=== PATIENT | female | born 1940 | race Caucasian/White ===

== ENCOUNTER 2016-10-12 13:03 | Inpatient (IN) | payer MEDICARE, BC ==
[~2016-10-12] VITALS: Ht 157.5 cm; Wt 47.2 kg
[~2016-10-12 13:03] MED LIST: ALEN70TA5 PO; AMLO5TAB2 PO; AMOX1TAB10 PO; AMOX1TAB61 PO; ASPI325T4 PO; ASPI81TA2 PO; CHOL500015 PO; CIPR250T30 PO; CITA40TA5 PO; GLIP10TA13 PO; GLIP5TAB10 PO; LISI40TA PO; LOVA40TA2 PO; OMEP40CA5 PO; POLY17PO5 PO; RANI150C PO; TOBR5DRO2 OS
[2016-10-12 14:26] LABS: BASO # 0.1 x10^3/uL (0.0-0.2); BASO % 1 % (0-3); EOS % 2 % (0-3); HEMATOCRIT 30.2 % (36.0-47.0); HEMOGLOBIN 9.7 g/dL (12.0-15.5); LYMPH # 1.5 x10^3/uL (1.0-4.8); LYMPH % 12 % (24-48); MEAN CORPUSCULAR HEMOGLOBIN 28 pg (25-35); MEAN CORPUSCULAR HGB CONC 32 g/dL (31-37); MEAN CORPUSCULAR VOLUME 88 fL (79-100); MONO % 11 % (0-9); NEUT % 74 % (31-73); PLATELET COUNT 274 x10^3/uL (140-400); RED BLOOD COUNT 3.42 x10^6/uL (3.50-5.40); RED CELL DISTRIBUTION WIDTH 15.8 % (11.5-14.5); WHITE BLOOD COUNT 11.9 x10^3/uL (4.0-11.0)
[2016-10-12 14:34] LABS: CALCIUM 8.5 mg/dL (8.5-10.1); CREATININE 1.4 mg/dL (0.6-1.0); GFR 36.5; POTASSIUM 4.4 mmol/L (3.5-5.1)
[2016-10-12 14:48] LABS: NEG OBC FOB NEG; POS OBC FOB POS
[2016-10-12] MEDS ORDERED: ONDANSETRON PF 4 MG/2 ML VIAL. IV PRN (15:30)
[2016-10-12] MEDS ORDERED: ACETAMINOPHEN 325 MG TABLET. PO PRN (15:30)
--- NOTE | 2016-10-12 15:37 | PHYS DOC ---
Past Medical History Past Medical History: Anxiety, CVA, Depression, Diabetes-Type II, GERD, High Cholesterol, Hypertension, Stroke, UTI, Other Additional Past Medical Histor: pressure ulcer Past Surgical History: Appendectomy, Hip Replacement, Hysterectomy Alcohol Use: None Drug Use: None Adult General Chief Complaint Chief Complaint: GI PROBLEM HPI HPI Patient is a 76 year old female who presents with family for concern of bright red blood per rectum this afternoon. She was in her normal state of health this morning and had a good night since returning home from hospital yesterday. Family was helping her transfer to her bed for her afternoon nap, when she had a large bloody bowel movement that included blood clots. She denies abdominal pain, fever or chills, nausea or vomiting, dysuria, back pain. Family states she has never had bloody stools like this before. Review of Systems Review of Systems Constitutional: Denies fever or chills [] Eyes: Denies change in visual acuity, redness, or eye pain [] HENT: Denies nasal congestion or sore throat [] Respiratory: Denies cough or shortness of breath [] Cardiovascular: No additional information not addressed in HPI [] GI: Denies abdominal pain, nausea, vomiting, or diarrhea [] : Denies dysuria or hematuria [] Musculoskeletal: Denies back pain or joint pain [] Integument: Denies rash or skin lesions [] Neurologic: Denies headache, focal weakness or sensory changes [] Endocrine: Denies polyuria or polydipsia [] Allergies Allergies Allergies Coded Allergies Type Severity Reaction Last Updated Verified adhesive Allergy Intermediate Rash 12/11/14 Yes latex Allergy Intermediate 04/03/14 Yes Physical Exam Physical Exam Constitutional: Well developed, well nourished, no acute distress, non-toxic appearance. [] HENT: Normocephalic, atraumatic, bilateral external ears normal, oropharynx moist. [] Eyes: PERRLA, EOMI. [] Neck: Normal range of motion, supple. [] Cardiovascular:Heart rate regular rhythm [] Lungs & Thorax: Bilateral breath sounds clear to auscultation [] Abdomen: Bowel sounds normal, soft, no tenderness. Small amount of bright red blood on glove by rectal exam; no visual external bleeding source from rectum. [ ] Skin: Warm, dry, no erythema, no rash. [] Back: No tenderness, no CVA tenderness. [] Extremities: No tenderness, trace bilateral lower extremity edema. [] Neurologic: Alert and oriented to self, chronic contractures of limbs from CVA, normal sensory function. [] Psychologic: Affect normal, judgement impaired by chronic illness, mood normal. [] Current Patient Data Vital Signs Vital Signs Date Time Temp Pulse Resp B/P Pulse Ox O2 Delivery O2 Flow Rate FiO2 10/12/16 14:21 67 114/59 93 10/12/16 13:24 97.4 14 Room Air 97.4 Lab Values Laboratory Tests Test 10/12/16 13:25 10/12/16 14:30 White Blood Count 11.9x10^3/uL (4.0-11.0) H Red Blood Count 3.42x10^6/uL (3.50-5.40) L Hemoglobin 9.7g/dL (12.0-15.5) L Hematocrit 30.2% (36.0-47.0) L Mean Corpuscular Volume 88fL (79-100) Mean Corpuscular Hemoglobin 28pg (25-35) Mean Corpuscular Hemoglobin Concent 32g/dL (31-37) Red Cell Distribution Width 15.8% (11.5-14.5) H Platelet Count 274x10^3/uL (140-400) Neutrophils (%) (Auto) 74% (31-73) H Lymphocytes (%) (Auto) 12% (24-48) L Monocytes (%) (Auto) 11% (0-9) H Eosinophils (%) (Auto) 2% (0-3) Basophils (%) (Auto) 1% (0-3) Neutrophils # (Auto) 8.8x10^3uL (1.8-7.7) H Lymphocytes # (Auto) 1.5x10^3/uL (1.0-4.8) Monocytes # (Auto) 1.3x10^3/uL (0.0-1.1) H Eosinophils # (Auto) 0.2x10^3/uL (0.0-0.7) Basophils # (Auto) 0.1x10^3/uL (0.0-0.2) Sodium Level 141mmol/L (136-145) Potassium Level 4.4mmol/L (3.5-5.1) Chloride Level 107mmol/L (98-107) Carbon Dioxide Level 24mmol/L (21-32) Anion Gap 10 (6-14) Blood Urea Nitrogen 33mg/dL (7-20) H Creatinine 1.4mg/dL (0.6-1.0) H Estimated GFR (Cockcroft-Gault) 36.5 Glucose Level 207mg/dL (70-99) H Calcium Level 8.5mg/dL (8.5-10.1) Stool Occult Blood Positive (NEG) Laboratory Tests 10/12/16 13:25 Laboratory Tests 10/12/16 13:25 Course & Med Decision Making Course & Med Decision Making Pertinent Labs and Imaging studies reviewed. (See chart for details) Has positive fecal occult, but otherwise unremarkable exam. Discussed need for admission for active lower GI bleed with Dr. Aldridge, who will admit. GI consultation placed. Yanique Disclaimer Dragon Disclaimer This electronic medical record was generated, in whole or in part, using a voice recognition dictation system. Departure Departure Impression: Primary Impression: Lower GI bleed Disposition: ADMITTED INPATIENT Condition: STABLE Referrals: ELEN ALDRIDGE MD (PCP) Jared VIDES MD Oct 12, 2016 15:37
--- NOTE | 2016-10-12 16:12 | PDOC2 ---
GI CONSULT Reason For Consult: Lower GI Bleed HPI: HPI: 76 y/o female seen alone in the ER this afternoon. History from chart and [employer] ; pt w/ h/o CVA and aphasia. Recent admission (just discharged 10/11/16) w/ fever and leukocytosis (followed by ID) and fecal impaction noted on CT on which a 6.5cm infrarenal AAA was also noted. Vascular surgery saw; the family made the decision not to pursue surgery. It was advised Miralax be continued at home. On this occasion, family reports the patient was doing well at home but while getting back into bed this morning after eating breakfast and passed red blood w/ clots. Labs: Hgb 9.7 (was 10 on 10/08, 8.7 on 10/07), BUN 33, Cr 1.4 , hemoccult positive, WBC 11.9. Home meds include omeprazole and ranitidine, along w/ ASA 81mg. Has previously seen Dr. Gaston, most recently in 2010. EGD for heartburn and dysphagia on 04/28 showed benign intrinsic stricture that was dilated to 54Fr, possible Kang 's esophagus (biopsy w/ mild chronic inflammation but negative for Kang's/ dysplasia), non-erosive gastritis, and normal duodenum. No colonoscopy report found. PMH: PMH: from chart - HTN, HLD, COPD, CVA w/ right-sided weakness and expressive aphasia , anxiety/depression, DM, AAA, appendectomy, cholecystectomy, right hip replacement, hysterectomy Social History: Smoke: Quit ALCOHOL: none Drugs: None ROS: Basically unobtainable. Denies pain. VItals: Vitals: Vital Signs Date Time Temp Pulse Resp B/P Pulse Ox O2 Delivery O2 Flow Rate FiO2 10/12/16 13:24 97.4 75 14 133/94 94 Room Air 97.4 Labs: Labs: Laboratory Tests Test 10/12/16 13:25 10/12/16 14:30 White Blood Count 11.9x10^3/uL (4.0-11.0) Red Blood Count 3.42x10^6/uL (3.50-5.40) Hemoglobin 9.7g/dL (12.0-15.5) Hematocrit 30.2% (36.0-47.0) Mean Corpuscular Volume 88fL (79-100) Mean Corpuscular Hemoglobin 28pg (25-35) Mean Corpuscular Hemoglobin Concent 32g/dL (31-37) Red Cell Distribution Width 15.8% (11.5-14.5) Platelet Count 274x10^3/uL (140-400) Neutrophils (%) (Auto) 74% (31-73) Lymphocytes (%) (Auto) 12% (24-48) Monocytes (%) (Auto) 11% (0-9) Eosinophils (%) (Auto) 2% (0-3) Basophils (%) (Auto) 1% (0-3) Neutrophils # (Auto) 8.8x10^3uL (1.8-7.7) Lymphocytes # (Auto) 1.5x10^3/uL (1.0-4.8) Monocytes # (Auto) 1.3x10^3/uL (0.0-1.1) Eosinophils # (Auto) 0.2x10^3/uL (0.0-0.7) Basophils # (Auto) 0.1x10^3/uL (0.0-0.2) Sodium Level 141mmol/L (136-145) Potassium Level 4.4mmol/L (3.5-5.1) Chloride Level 107mmol/L (98-107) Carbon Dioxide Level 24mmol/L (21-32) Anion Gap 10 (6-14) Blood Urea Nitrogen 33mg/dL (7-20) Creatinine 1.4mg/dL (0.6-1.0) Estimated GFR (Cockcroft-Gault) 36.5 Glucose Level 207mg/dL (70-99) Calcium Level 8.5mg/dL (8.5-10.1) Stool Occult Blood Positive (NEG) Allergies: Coded Allergies: adhesive (Verified Allergy, Intermediate, Rash, 12/11/14) latex (Verified Allergy, Intermediate, 04/03/14) Medications: Please see EMR. Imaging: Imaging: CT A/P 10/05/16 Impression: - 6.5 centimeter infrarenal abdominal aortic aneurysm. - Massive fecal impaction. PE: GEN: NAD HEENT: Atraumatic, PERRL LUNGS: CTAB anteriorly HEART: RRR ABD: NABS, S/ND/NT EXTREMITY: No edema SKIN: No rashes, no jaundice NEURO/PSYCH: alert A/P: A/P: Hematochezia - no recurrence in ER -this morning at home w/ clots, witnessed by family -Hgb 9.7 (from 10 on 10/08) Recent fecal impaction -I believe has been using Miralax GERD -on PPI and H2 homero H/o esophageal stricture -dilated 04/2011 CRC screen -?no previous colonoscopy AAA H/o CVA w/ aphasia, weakness -- Reviewed w/ Dr. Gaston. W/ recent fecal impaction, bleeding possibly from stercoral ulcer. Will observe for now w/ consideration for colonoscopy if continues to bleed. Okay for full liquids. Will also add her usual PPI and H2 homero. FLORENCE LINDQUIST Oct 12, 2016 16:12
--- NOTE | 2016-10-12 17:01 | ACF ---
Admission Forms Criteria GASTROINTESTINAL BLEEDING Clinical Indications for Inpatient Care (Place 'X' for any and all applicable criteria): Ongoing inpatient care may be indicated for gastrointestinal bleeding with ANY ONE of the following (4)(20)(21)(22)(23)(24): [X]I. Active bleeding (eg, fresh voluminous blood in emesis or nasogastric aspirate, or per rectum) [ ]II. Hemodynamic instability [ ]III. Anticoagulation therapy or coagulopathy ((eg, advanced liver disease, irreversible anticoagulation) [ ]IV. Ischemic colitis (22) [ ]V. Endoscopy showing arterial bleeding, adherent clot, nonbleeding visible vessel, varices, flat red spots, ulcer size greater than 2 cm, or portal hypertensive gastropathy [ ]. High-risk low platelet count [ ]VII. Anemia requiring inpatient care as indicated by ANY ONE of the following a)[ ] Cognitive impairment b)[ ] Syncope c)[ ] Heart failure d)[ ] Chest pain e)[ ] Dyspnea f)[ ] Other findings suggesting inadequate perfusion (eg, peripheral or myocardial ischemia, end organ dysfunction) [ ]VIII. High-risk low platelet count [ ]IX. Suspected variceal cause of bleeding as indicated by ANY ONE of the following(27)(28): a)[ ] Known varices b)[ ] Hepatomegaly or splenomegaly c)[ ] Ascites d)[ ] Jaundice or scleral icterus e)[ ] History of liver disease (eg, cirrhosis) f)[ ] Physical findings of portal hypertension (eg, caput medusa) g)[ ] Comorbid disorder indicating risk for portal vein thrombosis (eg , abdominal surgery, sepsis, shock, exchange transfusion, prior umbilical vein catheterization) Extended stay may be needed until ALL of the following are present(20)(38)(47): [ ]a) Hemodynamic stability [ ]b) No evidence of active bleeding (eg, stable Hematocrit) [ ]c) Platelet count, prothrombin time, and partial thromboplastin time acceptable for next level of care [ ]d) Surgical or other acute intervention not needed [ ]e) Oral hydration and diet tolerated The original [employer] content created by [employer] has been revised. The portions of the content which have been revised are identified through the use of italic text or in bold, and [employer]ena Weiner has neither reviewed nor approved the modified material. All other unmodified content is copyright [facility]. Please see references footnoted in the original [facility] edition 2016 Admission Criteria Met?: Yes VLADIMIR ESQUIVEL Oct 12, 2016 17:01
[2016-10-12 20:45] VITALS: BP 146/71
[2016-10-12 21:30] VITALS: BP_SYST 146; BP_SYST 168; BP_DIAS 69; BP_DIAS 71
[2016-10-12] MEDS: FAMOTIDINE 20 MG TABLET. PO SCH (22:44)
[2016-10-12 23:33] VITALS: BP 152/97
[2016-10-13 03:35] VITALS: BP 136/64
[2016-10-13 07:00] VITALS: BP 133/65
[2016-10-13 07:50] LABS: BASO # 0.1 x10^3/uL (0.0-0.2); BASO % 1 % (0-3); EOS % 2 % (0-3); HEMATOCRIT 23.6 % (36.0-47.0); HEMOGLOBIN 7.8 g/dL (12.0-15.5); LYMPH # 1.4 x10^3/uL (1.0-4.8); LYMPH % 18 % (24-48); MEAN CORPUSCULAR HEMOGLOBIN 29 pg (25-35); MEAN CORPUSCULAR HGB CONC 33 g/dL (31-37); MEAN CORPUSCULAR VOLUME 87 fL (79-100); MONO % 11 % (0-9); NEUT % 69 % (31-73); PLATELET COUNT 214 x10^3/uL (140-400); RED CELL DISTRIBUTION WIDTH 15.7 % (11.5-14.5); WHITE BLOOD COUNT 7.9 x10^3/uL (4.0-11.0)
[2016-10-13] MEDS ORDERED: DEXTROSE 50% 25 GM / 50ML DISP.SYRIN. IV PRN (08:30)
--- NOTE | 2016-10-13 08:30 | PDOC ---
PROGRESS NOTES Subjective Subjective Patient denies pain. Objective Objective Vital Signs Date Time Temp Pulse Resp B/P Pulse Ox O2 Delivery O2 Flow Rate FiO2 10/13/16 07:00 97.9 61 16 133/65 94 Room Air 97.9 Physical Exam Abdomen: Normal bowel sounds, Soft, No tenderness Heart: Regular rate Extremities: No edema General: Alert, No acute distress (resting quietly in bed) Lungs: Clear to auscultation Assessment Assessment Problems Medical Problems: (1) Lower GI bleed Status: Acute Plan Plan of Care 1. Lower GI bleed - Hgb has dropped overnight, no evidence of significant ongoing bleeding at this time. GI following. 2. HTN - resume home meds. 3. DM2 - hold po meds while on restricted diet (full liquids presently), use SS as needed. Comment Review of Relevant I have reviewed the following items casie (where applicable) has been applied. Labs Laboratory Tests Test 10/12/16 13:25 10/12/16 14:30 10/13/16 07:20 10/13/16 07:26 White Blood Count 11.9x10^3/uL (4.0-11.0) 7.9x10^3/uL (4.0-11.0) Red Blood Count 3.42x10^6/uL (3.50-5.40) 2.70x10^6/uL (3.50-5.40) Hemoglobin 9.7g/dL (12.0-15.5) 7.8g/dL (12.0-15.5) Hematocrit 30.2% (36.0-47.0) 23.6% (36.0-47.0) Mean Corpuscular Volume 88fL (79-100) 87fL (79-100) Mean Corpuscular Hemoglobin 28pg (25-35) 29pg (25-35) Mean Corpuscular Hemoglobin Concent 32g/dL (31-37) 33g/dL (31-37) Red Cell Distribution Width 15.8% (11.5-14.5) 15.7% (11.5-14.5) Platelet Count 274x10^3/uL (140-400) 214x10^3/uL (140-400) Neutrophils (%) (Auto) 74% (31-73) 69% (31-73) Lymphocytes (%) (Auto) 12% (24-48) 18% (24-48) Monocytes (%) (Auto) 11% (0-9) 11% (0-9) Eosinophils (%) (Auto) 2% (0-3) 2% (0-3) Basophils (%) (Auto) 1% (0-3) 1% (0-3) Neutrophils # (Auto) 8.8x10^3uL (1.8-7.7) 5.4x10^3uL (1.8-7.7) Lymphocytes # (Auto) 1.5x10^3/uL (1.0-4.8) 1.4x10^3/uL (1.0-4.8) Monocytes # (Auto) 1.3x10^3/uL (0.0-1.1) 0.9x10^3/uL (0.0-1.1) Eosinophils # (Auto) 0.2x10^3/uL (0.0-0.7) 0.1x10^3/uL (0.0-0.7) Basophils # (Auto) 0.1x10^3/uL (0.0-0.2) 0.1x10^3/uL (0.0-0.2) Sodium Level 141mmol/L (136-145) Potassium Level 4.4mmol/L (3.5-5.1) Chloride Level 107mmol/L (98-107) Carbon Dioxide Level 24mmol/L (21-32) Anion Gap 10 (6-14) Blood Urea Nitrogen 33mg/dL (7-20) Creatinine 1.4mg/dL (0.6-1.0) Estimated GFR (Cockcroft-Gault) 36.5 Glucose Level 207mg/dL (70-99) Calcium Level 8.5mg/dL (8.5-10.1) Stool Occult Blood Positive (NEG) Glucose (Fingerstick) 119mg/dL (70-99) Laboratory Tests Test 10/12/16 13:25 10/12/16 14:30 10/13/16 07:20 10/13/16 07:26 White Blood Count 11.9x10^3/uL (4.0-11.0) 7.9x10^3/uL (4.0-11.0) Red Blood Count 3.42x10^6/uL (3.50-5.40) 2.70x10^6/uL (3.50-5.40) Hemoglobin 9.7g/dL (12.0-15.5) 7.8g/dL (12.0-15.5) Hematocrit 30.2% (36.0-47.0) 23.6% (36.0-47.0) Mean Corpuscular Volume 88fL (79-100) 87fL (79-100) Mean Corpuscular Hemoglobin 28pg (25-35) 29pg (25-35) Mean Corpuscular Hemoglobin Concent 32g/dL (31-37) 33g/dL (31-37) Red Cell Distribution Width 15.8% (11.5-14.5) 15.7% (11.5-14.5) Platelet Count 274x10^3/uL (140-400) 214x10^3/uL (140-400) Neutrophils (%) (Auto) 74% (31-73) 69% (31-73) Lymphocytes (%) (Auto) 12% (24-48) 18% (24-48) Monocytes (%) (Auto) 11% (0-9) 11% (0-9) Eosinophils (%) (Auto) 2% (0-3) 2% (0-3) Basophils (%) (Auto) 1% (0-3) 1% (0-3) Neutrophils # (Auto) 8.8x10^3uL (1.8-7.7) 5.4x10^3uL (1.8-7.7) Lymphocytes # (Auto) 1.5x10^3/uL (1.0-4.8) 1.4x10^3/uL (1.0-4.8) Monocytes # (Auto) 1.3x10^3/uL (0.0-1.1) 0.9x10^3/uL (0.0-1.1) Eosinophils # (Auto) 0.2x10^3/uL (0.0-0.7) 0.1x10^3/uL (0.0-0.7) Basophils # (Auto) 0.1x10^3/uL (0.0-0.2) 0.1x10^3/uL (0.0-0.2) Sodium Level 141mmol/L (136-145) Potassium Level 4.4mmol/L (3.5-5.1) Chloride Level 107mmol/L (98-107) Carbon Dioxide Level 24mmol/L (21-32) Anion Gap 10 (6-14) Blood Urea Nitrogen 33mg/dL (7-20) Creatinine 1.4mg/dL (0.6-1.0) Estimated GFR (Cockcroft-Gault) 36.5 Glucose Level 207mg/dL (70-99) Calcium Level 8.5mg/dL (8.5-10.1) Stool Occult Blood Positive (NEG) Glucose (Fingerstick) 119mg/dL (70-99) Medications Current Medications Ondansetron HCl (Zofran) 4 mg PRN Q8HRS PRN IV NAUSEA/VOMITING; Start 10/12/16 at 15:30; Stop 10/13/16 at 15:29 Acetaminophen (Tylenol) 650 mg PRN Q4HRS PRN PO FEVER; Start 10/12/16 at 15:30 ; Stop 10/13/16 at 15:29 Pantoprazole Sodium (Protonix) 40 mg DAILYAC PO ; Start 10/13/16 at 07:30 Famotidine (Pepcid) 20 mg QHS PO Last administered on 10/12/16t 22:44; Start at 21:00 Amlodipine Besylate (Norvasc) 5 mg DAILY PO ; Start 10/13/16 at 09:00; Status UNV Amoxicillin/ Clavulanate Potassium (Augmentin 500/ 125mg) 1 tab BID PO ; Start 10/13/16 at 09:00; Status UNV Lisinopril (Prinivil) 40 mg DAILY PO ; Start 10/13/16 at 09:00; Status UNV Non-Formulary Medication 1 tab HS PO ; Start 10/13/16 at 21:00; Status UNV Non-Formulary Medication 1 cap HS PO ; Start 10/13/16 at 21:00; Status UNV Non-Formulary Medication 150 mg BID PO ; Start 10/13/16 at 09:00; Status UNV Insulin Aspart (Novolog) 0-5 UNITS TIDWMEALS SQ ; Start 10/13/16 at 12:00; Status UNV Dextrose 12.5 gm PRN Q15MIN PRN IV SEE COMMENTS; Start 10/13/16 at 08:30; Status UNV Active Scripts Active Amox Tr-K Clv 500-125 Mg Tab (Amoxicillin/Potassium Clav) 1 Each Tablet 1 Tab PO BID 3 Days Amlodipine Besylate 5 Mg Tablet 5 Mg PO DAILY 30 Days Miralax (Polyethylene Glycol 3350) 17 Gm Powd.pack 17 Gm PO DAILY 30 Days Reported Glipizide 10 Mg Tablet 1 Tab PO DAILYWBKFT Glipizide 5 Mg Tablet 1 Tab PO DAILYWSUP Aspirin 81 Mg Tab.chew 1 Tab PO DAILY Vitamin D (Cholecalciferol (Vitamin D3)) 5,000 Unit Tablet 5,000 Unit PO WEEKLY Ranitidine Hcl 150 Mg Capsule 150 Mg PO BID Alendronate Sodium 70 Mg Tablet 70 Mg PO WEEKLY Lisinopril 40 Mg Tablet 1 Tab PO DAILY Citalopram Hbr (Citalopram Hydrobromide) 40 Mg Tablet 1 Tab PO HS Omeprazole 40 Mg Capsule.dr [place] Cap PO HS Vitals/I & O Vital Sign - Last 24 Hours 10/12/16 10/12/16 10/12/16 10/12/16 13:07 13:24 14:21 15:21 Temp 97.4 97.4 Pulse 73 75 67 68 Resp 14 B/P 133/94 133/94 114/59 156/73 Pulse Ox 94 93 94 O2 Delivery Room Air 10/12/16 10/12/16 10/12/16 10/12/16 16:21 17:21 18:21 19:21 Pulse 72 74 78 88 Resp 22 23 B/P 164/82 172/85 150/97 170/91 Pulse Ox 94 93 93 94 10/12/16 10/12/16 10/12/16 10/12/16 20:00 20:40 20:45 23:28 Temp 99.9 99.9 Pulse 80 88 74 Resp 24 21 16 B/P 173/93 164/74 146/71 Pulse Ox 94 95 O2 Delivery Room Air Room Air Room Air 10/12/16 10/13/16 10/13/16 23:33 03:35 07:00 Temp 98.8 99.3 97.9 98.8 99.3 97.9 Pulse 71 74 61 Resp 16 16 16 B/P 152/97 136/64 133/65 Pulse Ox 94 92 94 O2 Delivery Room Air Room Air Room Air ELEN FERMIN MD Oct 13, 2016 08:30
[2016-10-13] MEDS ORDERED: FAMOTIDINE 20 MG TABLET. PO SCH (09:00)
[2016-10-13] MEDS: INSULIN ASPART 300 UNITS/3 ML INSULN.PEN SQ SCH ×2 (09:05→17:05)
[2016-10-13] MEDS: AMOXICILLIN/K CLAV 500/125MG TABLET. PO SCH ×2 (09:06→20:49)
[2016-10-13] MEDS: PANTOPRAZOLE 40 MG TABLET. PO SCH (09:06)
[2016-10-13] MEDS: LISINOPRIL 40 MG TABLET. PO SCH (09:07)
[2016-10-13] MEDS: AMLODIPINE BESYLATE 5 MG TABLET PO SCH (09:07)
--- NOTE | 2016-10-13 09:14 | HP ---
ADMIT DATE: 10/12/2016 CHIEF COMPLAINT: Rectal bleeding. HISTORY OF PRESENT ILLNESS: The patient is a 76-year-old female who was just discharged from [place] on 10/11/2016 after hospitalization for treatment of fecal impaction. She had returned home with her daughter and was apparently doing fine until the morning of this admission when the family reports she had a large stool with a significant amount of bright red blood. They brought her to the Emergency Room. Initial hemoglobin was 9.7 and she was admitted for further treatment. PAST MEDICAL HISTORY: Recent fecal impaction, recent illness with fever and leukocytosis, 6.5 cm infrarenal abdominal aortic aneurysm diagnosed on her last admission, diabetes mellitus type 2, hypertension, depression, status post CVA with residual aphasia. PAST SURGICAL HISTORY: Appendectomy, cholecystectomy, total hip replacement, hysterectomy. ALLERGIES: The patient has no known medication allergies. SHE IS ALLERGIC TO ADHESIVE TAPE AND LATEX. HOME MEDICATIONS: Alendronate 70 mg weekly, amlodipine 5 mg daily, Augmentin 875 b.i.d., aspirin 81 mg daily, citalopram 40 mg daily, glipizide 10 mg with breakfast and 5 mg with supper, lisinopril 40 mg daily, omeprazole 40 mg daily, MiraLax daily, ranitidine 150 mg b.i.d. FAMILY HISTORY: Noncontributory. SOCIAL HISTORY: The patient is . She lives with her daughter and son-in-law, who provide her care at home. She has a long smoking history, but quit smoking cigarettes several years ago. She does not drink alcohol. REVIEW OF SYSTEMS: This is presently unobtainable due to the patient's aphasia. The Emergency Room record shows that the patient seemed to be doing fine at home with no evidence of illness and no complaints of any pain. The patient did receive her flu shot during her last admission. PHYSICAL EXAMINATION: GENERAL: The patient is alert. She is resting quietly in bed in no acute distress. HEENT: PERRL, EOMI, sclerae clear. Oropharynx: Mucous membranes moist. NECK: Supple without lymphadenopathy. CHEST: Clear to auscultation. Breath sounds are mildly decreased throughout. CARDIOVASCULAR: Regular rhythm without murmur. ABDOMEN: Soft, nontender, normoactive bowel sounds are present. EXTREMITIES: Without edema. ASSESSMENT AND PLAN: 1. Lower gastrointestinal bleed. The patient's hemoglobin has dropped overnight to 7.8. There is no evidence of a significant ongoing bleeding at this time. GI is following. Consideration is given to possible prep for colonoscopy as the patient has not had this in many years, if at all, previously. We will hold her aspirin and continue to follow her labs. 2. Hypertension. Resume home medication. 3. Diabetes mellitus type 2. P.o. meds are on hold while the patient is on a restricted diet. We will use sliding scale insulin and resume her oral medications when her regular diet is resumed. 4. Infrarenal abdominal aortic aneurysm. The patient and family have decided not to pursue surgical treatment of this at this time due to the significant surgical risks and the patient's debility. We will continue to monitor. ELEN FERMIN MD DR: OLENA/robin JOB#: [id number] / [id number] MANUEL
[2016-10-13 11:00] VITALS: BP 128/71
--- NOTE | 2016-10-13 11:43 | PDOC ---
Subjective: Subjective: Pt indicates no pain, doesn't like full liquids much. Objective: Objective: Per RN - a little blood in briefs when brought up from ER, none since. Vital Signs: Vital Signs Date Time Temp Pulse Resp B/P Pulse Ox O2 Delivery O2 Flow Rate FiO2 10/13/16 11:00 97.9 65 18 128/71 96 Room Air 97.9 Labs: Laboratory Tests Test 10/12/16 13:25 10/12/16 14:30 10/13/16 07:20 10/13/16 07:26 White Blood Count 11.9x10^3/uL 7.9x10^3/uL Red Blood Count 3.42x10^6/uL 2.70x10^6/uL Hemoglobin 9.7g/dL 7.8g/dL Hematocrit 30.2% 23.6% Mean Corpuscular Volume 88fL 87fL Mean Corpuscular Hemoglobin 28pg 29pg Mean Corpuscular Hemoglobin Concent 32g/dL 33g/dL Red Cell Distribution Width 15.8% 15.7% Platelet Count 274x10^3/uL 214x10^3/uL Neutrophils (%) (Auto) 74% 69% Lymphocytes (%) (Auto) 12% 18% Monocytes (%) (Auto) 11% 11% Eosinophils (%) (Auto) 2% 2% Basophils (%) (Auto) 1% 1% Neutrophils # (Auto) 8.8x10^3uL 5.4x10^3uL Lymphocytes # (Auto) 1.5x10^3/uL 1.4x10^3/uL Monocytes # (Auto) 1.3x10^3/uL 0.9x10^3/uL Eosinophils # (Auto) 0.2x10^3/uL 0.1x10^3/uL Basophils # (Auto) 0.1x10^3/uL 0.1x10^3/uL Sodium Level 141mmol/L Potassium Level 4.4mmol/L Chloride Level 107mmol/L Carbon Dioxide Level 24mmol/L Anion Gap 10 Blood Urea Nitrogen 33mg/dL Creatinine 1.4mg/dL Estimated GFR (Cockcroft-Gault) 36.5 Glucose Level 207mg/dL Calcium Level 8.5mg/dL Stool Occult Blood Positive Glucose (Fingerstick) 119mg/dL PE: GEN: NAD, laying on side in bed LUNGS: clear anteriorly HEART: S1S2 ABD: S/ND/NT NEURO/PSYCH: alert, nods yes A/P: Hematochezia - no recurrence -yesterday a.m. at home w/ clots, witnessed by family -Hgb drifted to 7.8 (from 9.7) -recent fecal impaction -?previous colonoscopy GERD -on PPI and H2 homero -h/o esophageal stricture, last dialted 2010 H/o CVA w/ aphasia, AAA -- Will advance to GI soft. Continue to monitor labs, symptoms. FLORENCE LINDQUIST Oct 13, 2016 11:43
[2016-10-13 15:00] VITALS: BP 132/60
[2016-10-13 19:50] VITALS: BP 137/57
[2016-10-13] MEDS: CITALOPRAM 20 MG TABLET. PO SCH (20:49)
[2016-10-13] MEDS: FAMOTIDINE 20 MG TABLET. PO SCH (20:49)
[2016-10-13] MEDS ORDERED: NON FORMULARY ITEM (Omeprazole 1 CAP) PO SCH (21:00)
[2016-10-13 23:49] VITALS: BP 159/66
[2016-10-14 02:55] VITALS: BP 150/65
[2016-10-14 05:13] LABS: HEMOGLOBIN 7.6 g/dL (12.0-15.5); RED BLOOD COUNT 2.66 x10^6/uL (3.50-5.40); RED CELL DISTRIBUTION WIDTH 15.3 % (11.5-14.5); WHITE BLOOD COUNT 9.2 x10^3/uL (4.0-11.0)
[2016-10-14 07:00] VITALS: BP 126/57
[2016-10-14] MEDS: AMOXICILLIN/K CLAV 500/125MG TABLET. PO SCH ×2 (09:32→21:42)
[2016-10-14] MEDS: LISINOPRIL 40 MG TABLET. PO SCH (09:33)
[2016-10-14] MEDS: AMLODIPINE BESYLATE 5 MG TABLET PO SCH (09:34)
[2016-10-14] MEDS: PANTOPRAZOLE 40 MG TABLET. PO SCH (09:35)
[2016-10-14] MEDS: INSULIN ASPART 300 UNITS/3 ML INSULN.PEN SQ SCH ×3 (09:40→18:08)
[2016-10-14 11:52] VITALS: BP 129/50
--- NOTE | 2016-10-14 13:01 | PDOC ---
SUBJECTIVE Subjective Pt is non verbal. She is eating a regular diet. Nursing does not have any specific concerns other than fecal compaction, but pt seems comfortable and has not been vomiting. No bowel movement. OBJECTIVE Vital Signs Vital Signs Date Time Temp Pulse Resp B/P Pulse Ox O2 Delivery O2 Flow Rate FiO2 10/14/16 11:52 98.4 73 18 129/50 93 Room Air 98.4 10/14/16 09:34 63 126/57 10/14/16 09:33 63 126/57 10/14/16 08:00 Room Air 10/14/16 07:00 97.9 63 20 126/57 93 Room Air 97.9 10/14/16 02:55 99.3 68 16 150/65 94 Room Air 99.3 10/13/16 23:49 100.6 78 16 159/66 93 Room Air 100.6 10/13/16 20:00 Room Air 10/13/16 19:50 100.6 76 16 137/57 92 Room Air 100.6 10/13/16 15:00 97.8 79 18 132/60 95 97.8 I & O Intake and Output 10/14/16 07:00 Intake Total 480 ml Balance 480 ml Intake Oral 480 ml # Voids 4 PHYSICAL EXAM Physical Exam GEN: NAD, alert, shakes head yes to all questions and smiles HEENT: MMM, EOMI, no scleral icterus/injection Cardiac: RRR, no M/R/G Lungs: CTAB Abd: soft, mildly distended, NTTP Ext: no erythema/edema LE bilaterally ASSESSMENT/PLAN Assessment/Plan Pt is a 76yo CF admitted for GI Bleed 1. Lower GI bleed - Hgb stable. GI Following. Pt has fecal impaction 2. HTN - well controlled on Lisinopril 40mg and Norvasc 5mg 3. DM2 - well controlled with HbA1C 10/13 of 5.5. Her po meds have currently been held and she is getting SSI. Disp: Will see where family is interested in her going after discharge Problems: COMMENT Lab Laboratory Tests Test 10/13/16 16:43 10/13/16 21:24 10/14/16 03:55 10/14/16 08:05 Glucose (Fingerstick) 198mg/dL (70-99) 205mg/dL (70-99) 153mg/dL (70-99) White Blood Count 9.2x10^3/uL (4.0-11.0) Red Blood Count 2.66x10^6/uL (3.50-5.40) Hemoglobin 7.6g/dL (12.0-15.5) Hematocrit 23.0% (36.0-47.0) Mean Corpuscular Volume 86fL (79-100) Mean Corpuscular Hemoglobin 29pg (25-35) Mean Corpuscular Hemoglobin Concent 33g/dL (31-37) Red Cell Distribution Width 15.3% (11.5-14.5) Platelet Count 247x10^3/uL (140-400) Test 10/14/16 11:40 Glucose (Fingerstick) 230mg/dL (70-99) AMIRAH MONGE MD Oct 14, 2016 13:01
[2016-10-14 15:00] VITALS: BP 130/51
[2016-10-14 19:35] VITALS: BP 132/54
[2016-10-14] MEDS: CITALOPRAM 20 MG TABLET. PO SCH (21:42)
[2016-10-14] MEDS: FAMOTIDINE 20 MG TABLET. PO SCH (21:42)
[2016-10-14] MEDS ORDERED: ACETAMINOPHEN 325 MG TABLET. PO PRN (22:00)
[2016-10-14 23:35] VITALS: BP 151/45
[2016-10-15] VITALS (7 sets, daily range): BP systolic 109–159; BP diastolic 49–90
[2016-10-15] MEDS: PANTOPRAZOLE 40 MG TABLET. PO SCH (09:38)
[2016-10-15] MEDS: LISINOPRIL 40 MG TABLET. PO SCH (09:39)
[2016-10-15] MEDS: AMLODIPINE BESYLATE 5 MG TABLET PO SCH (09:40)
[2016-10-15] MEDS: INSULIN ASPART 300 UNITS/3 ML INSULN.PEN SQ SCH ×3 (09:44→18:14)
--- NOTE | 2016-10-15 12:33 | PDOC ---
SUBJECTIVE Subjective Pt had blood clots per rectum this morning that were bright red. No further bleeding. CBC not ordered this morning because pt had not been having anymore bleeding; will go ahead and order now. OBJECTIVE Vital Signs Vital Signs Date Time Temp Pulse Resp B/P Pulse Ox O2 Delivery O2 Flow Rate FiO2 10/15/16 11:24 98.3 65 18 113/54 94 Room Air 98.3 10/15/16 09:40 69 141/49 10/15/16 09:39 69 141/49 10/15/16 08:00 Room Air 10/15/16 07:00 99.1 69 18 141/49 93 Room Air 99.1 10/15/16 03:35 99.1 82 16 138/84 94 Room Air 99.1 10/14/16 23:35 100.8 80 16 151/45 91 Room Air 100.8 10/14/16 20:00 Room Air 10/14/16 19:35 101.3 76 16 132/54 93 Room Air 101.3 10/14/16 15:00 96.6 72 18 130/51 93 Room Air 96.6 I & O Intake and Output 10/15/16 07:00 Intake Total 500 ml Balance 500 ml Intake Oral 500 ml # Voids 5 PHYSICAL EXAM Physical Exam GEN: NAD, alert, shakes head yes to all questions and smiles HEENT: MMM, EOMI, no scleral icterus/injection Cardiac: RRR, no M/R/G Lungs: CTAB Abd: soft, mildly distended, NTTP Ext: no erythema/edema LE bilaterally ASSESSMENT/PLAN Assessment/Plan Pt is a 76yo CF admitted for GI Bleed 1. Lower GI bleed - Hgb stable but pt with new bleeding this morning, will get repeat labs. GI Following. Pt has fecal impaction 2. HTN - well controlled on Lisinopril 40mg and Norvasc 5mg 3. DM2 - well controlled with HbA1C 10/13 of 5.5. Her po meds have currently been held and she is getting SSI. Problems: COMMENT Lab Laboratory Tests Test 10/14/16 17:05 10/14/16 20:31 10/15/16 12:12 Glucose (Fingerstick) 192mg/dL (70-99) 219mg/dL (70-99) 122mg/dL (70-99) AMIRAH MONGE MD Oct 15, 2016 12:33
[2016-10-15 13:21] LABS: HEMATOCRIT 23.2 % (36.0-47.0); HEMOGLOBIN 7.5 g/dL (12.0-15.5); RED BLOOD COUNT 2.64 x10^6/uL (3.50-5.40); RED CELL DISTRIBUTION WIDTH 15.4 % (11.5-14.5); WHITE BLOOD COUNT 9.1 x10^3/uL (4.0-11.0)
[2016-10-15 13:52] LABS: BILIRUBIN,URINE NEGATIVE (NEG); GLUCOSE,URINE NEGATIVE (NEG); NITRITE,URINE NEGATIVE (NEG); PROTEIN,URINE NEGATIVE (NEG-TRACE); UROBILINOGEN,URINE 0.2 mg/dL (0.2 mg/dL)
[2016-10-15 13:59] LABS: BACTERIA,URINE 0 /HPF (0-FEW); RBC,URINE 0 /HPF (0-2); SQUAMOUS EPITHELIAL CELL,UR MOD /LPF; WBC,URINE OCC /HPF (0-4)
[2016-10-15] MEDS: FAMOTIDINE 20 MG TABLET. PO SCH (21:01)
[2016-10-15] MEDS: CITALOPRAM 20 MG TABLET. PO SCH (21:01)
[2016-10-16] VITALS (17 sets, daily range): BP systolic 135–188; BP diastolic 54–89
[2016-10-16 05:03] LABS: HEMATOCRIT 21.1 % (36.0-47.0); RED BLOOD COUNT 2.42 x10^6/uL (3.50-5.40); RED CELL DISTRIBUTION WIDTH 15.6 % (11.5-14.5)
[2016-10-16 05:17] LABS: HEMOGLOBIN 6.9 g/dL (12.0-15.5)
[2016-10-16 05:27] LABS: CREATININE 1.5 mg/dL (0.6-1.0); GFR 33.7; POTASSIUM 4.3 mmol/L (3.5-5.1)
[2016-10-16] MEDS: INSULIN ASPART 300 UNITS/3 ML INSULN.PEN SQ SCH ×3 (08:00→17:00)
[2016-10-16] MEDS ORDERED: FUROSEMIDE 20 MG/2 ML VIAL IV PRN (08:30)
--- NOTE | 2016-10-16 08:47 | PDOC ---
PROGRESS NOTES Subjective Subjective Patient without complaint, denies pain. Objective Objective Vital Signs Date Time Temp Pulse Resp B/P Pulse Ox O2 Delivery O2 Flow Rate FiO2 10/16/16 07:00 98.2 72 16 154/70 93 Room Air 98.2 Intake and Output 10/16/16 07:00 Intake Total 500 ml Balance 500 ml Intake Oral 500 ml # Voids 8 # Bowel Movements 2 Physical Exam Abdomen: Normal bowel sounds, Soft, Other (possible mild diffuse TTP) Heart: Regular rate Extremities: No edema General: Alert, No acute distress Lungs: Clear to auscultation Assessment Assessment Problems Medical Problems: (1) Lower GI bleed Status: Acute Plan Plan of Care 1. Lower GI bleed - another episode of rectal bleeding yesterday and Hgb decreased to 6.9 this morning. Will transfuse. Keep NPO, anticipate further imaging/tx as per GI. 2. fever - has been intermittent for several days. Check UA and start Rocephin as urinary tract most likely source. UA several days ago contained moderate squamous epithelial cells, straight cath specimen ordered. 3. HTN - controlled, continue present meds. 4. DM2 - controlled, SS insulin. PO meds on hold as she was not eating a full diet. Comment Review of Relevant I have reviewed the following items casie (where applicable) has been applied. Labs Laboratory Tests Test 10/14/16 11:40 10/14/16 17:05 10/14/16 20:31 10/15/16 12:12 Glucose (Fingerstick) 230mg/dL (70-99) 192mg/dL (70-99) 219mg/dL (70-99) 122mg/dL (70-99) Test 10/15/16 13:10 10/15/16 13:47 10/15/16 17:34 10/15/16 20:34 White Blood Count 9.1x10^3/uL (4.0-11.0) Red Blood Count 2.64x10^6/uL (3.50-5.40) Hemoglobin 7.5g/dL (12.0-15.5) Hematocrit 23.2% (36.0-47.0) Mean Corpuscular Volume 88fL (79-100) Mean Corpuscular Hemoglobin 28pg (25-35) Mean Corpuscular Hemoglobin Concent 32g/dL (31-37) Red Cell Distribution Width 15.4% (11.5-14.5) Platelet Count 276x10^3/uL (140-400) Urine Collection Type Unknown Urine Color Yellow Urine Clarity Clear Urine pH 6.0 Urine Specific [place] 1.015 Urine Protein Negativemg/dL (NEG-TRACE) Urine Glucose (UA) Negativemg/dL (NEG) Urine Ketones (Stick) Negativemg/dL (NEG) Urine Blood Negative (NEG) Urine Nitrite Negative (NEG) Urine Bilirubin Negative (NEG) Urine Urobilinogen Dipstick 0.2mg/dL (0.2 mg/dL) Urine Leukocyte Esterase Negative (NEG) Urine RBC 0/HPF (0-2) Urine WBC Occ/HPF (0-4) Urine Squamous Epithelial Cells Mod/LPF Urine Bacteria 0/HPF (0-FEW) Urine Mucus Mod/LPF Glucose (Fingerstick) 186mg/dL (70-99) 176mg/dL (70-99) Test 10/16/16 04:10 10/16/16 07:59 White Blood Count 8.0x10^3/uL (4.0-11.0) Red Blood Count 2.42x10^6/uL (3.50-5.40) Hemoglobin 6.9g/dL (12.0-15.5) Hematocrit 21.1% (36.0-47.0) Mean Corpuscular Volume 87fL (79-100) Mean Corpuscular Hemoglobin 29pg (25-35) Mean Corpuscular Hemoglobin Concent 33g/dL (31-37) Red Cell Distribution Width 15.6% (11.5-14.5) Platelet Count 264x10^3/uL (140-400) Sodium Level 145mmol/L (136-145) Potassium Level 4.3mmol/L (3.5-5.1) Chloride Level 110mmol/L (98-107) Carbon Dioxide Level 26mmol/L (21-32) Anion Gap 9 (6-14) Blood Urea Nitrogen 40mg/dL (7-20) Creatinine 1.5mg/dL (0.6-1.0) Estimated GFR (Cockcroft-Gault) 33.7 Glucose Level 214mg/dL (70-99) Calcium Level 8.0mg/dL (8.5-10.1) Glucose (Fingerstick) 169mg/dL (70-99) Laboratory Tests Test 10/15/16 12:12 10/15/16 13:10 10/15/16 13:47 10/15/16 17:34 Glucose (Fingerstick) 122mg/dL (70-99) 186mg/dL (70-99) White Blood Count 9.1x10^3/uL (4.0-11.0) Red Blood Count 2.64x10^6/uL (3.50-5.40) Hemoglobin 7.5g/dL (12.0-15.5) Hematocrit 23.2% (36.0-47.0) Mean Corpuscular Volume 88fL (79-100) Mean Corpuscular Hemoglobin 28pg (25-35) Mean Corpuscular Hemoglobin Concent 32g/dL (31-37) Red Cell Distribution Width 15.4% (11.5-14.5) Platelet Count 276x10^3/uL (140-400) Urine Collection Type Unknown Urine Color Yellow Urine Clarity Clear Urine pH 6.0 Urine Specific [place] 1.015 Urine Protein Negativemg/dL (NEG-TRACE) Urine Glucose (UA) Negativemg/dL (NEG) Urine Ketones (Stick) Negativemg/dL (NEG) Urine Blood Negative (NEG) Urine Nitrite Negative (NEG) Urine Bilirubin Negative (NEG) Urine Urobilinogen Dipstick 0.2mg/dL (0.2 mg/dL) Urine Leukocyte Esterase Negative (NEG) Urine RBC 0/HPF (0-2) Urine WBC Occ/HPF (0-4) Urine Squamous Epithelial Cells Mod/LPF Urine Bacteria 0/HPF (0-FEW) Urine Mucus Mod/LPF Test 10/15/16 20:34 10/16/16 04:10 10/16/16 07:59 Glucose (Fingerstick) 176mg/dL (70-99) 169mg/dL (70-99) White Blood Count 8.0x10^3/uL (4.0-11.0) Red Blood Count 2.42x10^6/uL (3.50-5.40) Hemoglobin 6.9g/dL (12.0-15.5) Hematocrit 21.1% (36.0-47.0) Mean Corpuscular Volume 87fL (79-100) Mean Corpuscular Hemoglobin 29pg (25-35) Mean Corpuscular Hemoglobin Concent 33g/dL (31-37) Red Cell Distribution Width 15.6% (11.5-14.5) Platelet Count 264x10^3/uL (140-400) Sodium Level 145mmol/L (136-145) Potassium Level 4.3mmol/L (3.5-5.1) Chloride Level 110mmol/L (98-107) Carbon Dioxide Level 26mmol/L (21-32) Anion Gap 9 (6-14) Blood Urea Nitrogen 40mg/dL (7-20) Creatinine 1.5mg/dL (0.6-1.0) Estimated GFR (Cockcroft-Gault) 33.7 Glucose Level 214mg/dL (70-99) Calcium Level 8.0mg/dL (8.5-10.1) Medications Current Medications Ondansetron HCl (Zofran) 4 mg PRN Q8HRS PRN IV NAUSEA/VOMITING; Start 10/12/16 at 15:30; Stop 10/13/16 at 15:29; Status DC Acetaminophen (Tylenol) 650 mg PRN Q4HRS PRN PO FEVER; Start 10/12/16 at 15:30 ; Stop 10/13/16 at 15:29; Status DC Pantoprazole Sodium (Protonix) 40 mg DAILYAC PO Last administered on 10/15/16 09:38; Start 10/13/16 at 07:30 Famotidine (Pepcid) 20 mg QHS PO Last administered on 10/15/16 21:01; Start at 21:00 Amlodipine Besylate (Norvasc) 5 mg DAILY PO Last administered on 10/15/16 09: 40; Start 10/13/16 at 09:00 Amoxicillin/ Clavulanate Potassium (Augmentin 500/ 125mg) 1 tab BID PO Last administered on 10/14/16 21:42; Start 10/13/16 at 09:00; Stop 10/14/16 at 21:01 ; Status DC Lisinopril (Prinivil) 40 mg DAILY PO Last administered on 10/15/16 09:39; Start 10/13/16 at 09:00 Citalopram Hydrobromide (Celexa) 40 mg QHS PO Last administered on 10/15/16 21 :01; Start 10/13/16 at 21:00 Non-Formulary Medication 1 cap HS PO ; Start 10/13/16 at 21:00; Stop 10/13/16 at 21:00; Status DC Famotidine (Pepcid) 20 mg DAILY PO ; Start 10/13/16 at 09:00; Status Cancel Insulin Aspart (Novolog) 0-5 UNITS TIDWMEALS SQ Last administered on 10/15/16 18:14; Start 10/13/16 at 12:00 Dextrose 12.5 gm PRN Q15MIN PRN IV SEE COMMENTS; Start 10/13/16 at 08:30 Acetaminophen (Tylenol) 325 mg PRN Q6HRS PRN PO MILD PAIN / TEMP Last administered on 10/15/16 21:01; Start 10/14/16 at 22:00 Active Scripts Active Amox Tr-K Clv 500-125 Mg Tab (Amoxicillin/Potassium Clav) 1 Each Tablet 1 Tab PO BID 3 Days Amlodipine Besylate 5 Mg Tablet 5 Mg PO DAILY 30 Days Miralax (Polyethylene Glycol 3350) 17 Gm Powd.pack 17 Gm PO DAILY 30 Days Reported Glipizide 10 Mg Tablet 1 Tab PO DAILYWBKFT Glipizide 5 Mg Tablet 1 Tab PO DAILYWSUP Aspirin 81 Mg Tab.chew 1 Tab PO DAILY Vitamin D (Cholecalciferol (Vitamin D3)) 5,000 Unit Tablet 5,000 Unit PO WEEKLY Ranitidine Hcl 150 Mg Capsule 150 Mg PO BID Alendronate Sodium 70 Mg Tablet 70 Mg PO WEEKLY Lisinopril 40 Mg Tablet 1 Tab PO DAILY Citalopram Hbr (Citalopram Hydrobromide) 40 Mg Tablet 1 Tab PO HS Omeprazole 40 Mg Capsule. 1 Cap PO HS Vitals/I & O Vital Sign - Last 24 Hours 10/15/16 10/15/16 10/15/16 10/15/16 09:39 09:40 11:24 15:00 Temp 98.3 98.0 98.3 98.0 Pulse 69 69 65 69 Resp 18 18 B/P 141/49 141/49 113/54 117/68 Pulse Ox 94 95 O2 Delivery Room Air Room Air 10/15/16 10/15/16 10/15/16 10/15/16 16:52 19:51 20:00 23:35 Temp 98.0 101.7 99.9 98.0 101.7 99.9 Pulse 67 67 95 Resp B/P 117/67 109/51 159/90 Pulse Ox 95 92 93 O2 Delivery Room Air Room Air Room Air Room Air 10/16/16 10/16/16 03:40 07:00 Temp 100.2 98.2 100.2 98.2 Pulse 82 72 Resp B/P 172/83 154/70 Pulse Ox 96 93 O2 Delivery Room Air Room Air Intake and Output 10/15/16 10/15/16 10/16/16 15:00 23:00 07:00 Intake Total 400 ml 100 ml Balance 400 ml 100 ml ELEN FERMIN MD Oct 16, 2016 08:47
[2016-10-16] MEDS: PANTOPRAZOLE 40 MG TABLET. PO SCH (08:59)
[2016-10-16] MEDS: AMLODIPINE BESYLATE 5 MG TABLET PO SCH (08:59)
[2016-10-16] MEDS: LISINOPRIL 40 MG TABLET. PO SCH (08:59)
[2016-10-16] MEDS: CEFTRIAXONE SODIUM 1 GM in IV NORMAL SALINE 50ML 50 ML IV SCH (09:00)
--- NOTE | 2016-10-16 10:48 | PDOC ---
Objective: Objective: RN called earlier this morning per Dr. Aldridge - passed more red blood overnight , drop in Hgb w/ transfusion planned. Vital Signs: Vital Signs Date Time Temp Pulse Resp B/P Pulse Ox O2 Delivery O2 Flow Rate FiO2 10/16/16 08:59 72 154/70 10/16/16 07:00 98.2 16 93 Room Air 98.2 Labs: Laboratory Tests Test 10/15/16 12:12 10/15/16 17:34 10/15/16 20:34 10/16/16 07:59 Glucose (Fingerstick) 122mg/dL (70-99) 186mg/dL (70-99) 176mg/dL (70-99) 169mg/dL (70-99) PE: GEN: asleep, NAD ABD: S/ND/NT NEURO/PSYCH: did not awaken A/P: Hematochezia - ongoing -yesterday a.m. at home w/ clots, witnessed by family -Hgb drifted to 7.5 to 6.9 -recent fecal impaction -?previous colonoscopy GERD -on PPI and H2 homero -h/o esophageal stricture, last dilated 2010 H/o CVA w/ aphasia, AAA -- Will review w/ Dr. Gaston re: need for further evaluation. She has been made NPO. FLORENCE LINDQUIST Oct 16, 2016 10:48
[2016-10-16] MEDS ORDERED: BISACODYL 5 MG TABLET.DR. PO ONE (11:45)
[2016-10-16] MEDS ORDERED: POLYETHYLENE GLYCOL 3350 238 GM POWDER PO ONE (11:45)
[2016-10-16 16:06] LABS: BILIRUBIN,URINE NEGATIVE (NEG); GLUCOSE,URINE NEGATIVE (NEG); NITRITE,URINE POSITIVE (NEG); PH,URINE 7.5; PROTEIN,URINE NEGATIVE (NEG-TRACE); UROBILINOGEN,URINE 0.2 mg/dL (0.2 mg/dL)
[2016-10-16 16:40] LABS: BACTERIA,URINE MANY /HPF (0-FEW); RBC,URINE OCC /HPF (0-2); SQUAMOUS EPITHELIAL CELL,UR OCC /LPF
[2016-10-16] MEDS: FAMOTIDINE 20 MG TABLET. PO SCH (20:23)
[2016-10-16] MEDS: CITALOPRAM 20 MG TABLET. PO SCH (20:23)
[2016-10-17] VITALS (13 sets, daily range): BP systolic 132–184; BP diastolic 51–97
[2016-10-17 05:26] LABS: HEMATOCRIT 33.7 % (36.0-47.0); HEMOGLOBIN 11.1 g/dL (12.0-15.5); RED BLOOD COUNT 3.86 x10^6/uL (3.50-5.40); WHITE BLOOD COUNT 12.5 x10^3/uL (4.0-11.0)
[2016-10-17] MEDS ORDERED: FENTANYL PF 100 MCG/2 ML VIAL. IV PRN ×2 (07:00)
[2016-10-17] MEDS ORDERED: IV RINGERS,LACTATED 1000ML 1,000 ML IV SCH ×2 (07:00→15:45)
[2016-10-17] MEDS ORDERED: PROCHLORPERAZINE 10 MG/2 ML VIAL. IV PRN (07:00)
[2016-10-17] MEDS ORDERED: HYDROMORPHONE 2 MG/ML VIAL. IV PRN (07:00)
[2016-10-17] MEDS ORDERED: ONDANSETRON PF 4 MG/2 ML VIAL. IV PRN (07:00)
[2016-10-17] MEDS ORDERED: MORPHINE SULFATE 2 MG/ML DISP.SYRIN. IV PRN (07:00)
[2016-10-17] MEDS ORDERED: LIDOCAINE 1% 1 ML SYRINGE. ID PRN (07:00)
[2016-10-17] MEDS: INSULIN ASPART 300 UNITS/3 ML INSULN.PEN SQ SCH ×3 (08:00→17:00)
--- NOTE | 2016-10-17 08:33 | PDOC ---
PROGRESS NOTES Subjective Subjective Patient sleeping quietly, denies pain when awakened. Objective Objective Vital Signs Date Time Temp Pulse Resp B/P Pulse Ox O2 Delivery O2 Flow Rate FiO2 10/17/16 03:00 97.7 75 18 172/80 95 Room Air 97.7 Intake and Output 10/17/16 07:00 Intake Total 1590 ml Balance 1590 ml Intake Oral 200 ml Blood Product IV Normal Saline Flush 1390 ml # Voids 5 Physical Exam Abdomen: Normal bowel sounds, Soft, Other (some diffuse TTP without guarding or rebound, abdomen seems distended) Heart: Regular rate Extremities: No edema General: Alert, No acute distress Lungs: Clear to auscultation Assessment Assessment Problems Medical Problems: (1) Lower GI bleed Status: Acute Plan Plan of Care 1. Lower GI bleeding - Hgb much improved after transfusion yesterday. GI plans colonoscopy today for further evaluation. 2. fever - none for 24 hours but WBC's are elevated on lab today. Urine with 1- 4 WBC's. Culture pending. Continue Rocephin. 3. HTN - BP elevated, continue home meds. 4. DM2 - glucose elevated at times, continue SS insulin while she is NPO. Comment Review of Relevant I have reviewed the following items casie (where applicable) has been applied. Labs Laboratory Tests Test 10/15/16 12:12 10/15/16 13:10 10/15/16 13:47 10/15/16 17:34 Glucose (Fingerstick) 122mg/dL (70-99) 186mg/dL (70-99) White Blood Count 9.1x10^3/uL (4.0-11.0) Red Blood Count 2.64x10^6/uL (3.50-5.40) Hemoglobin 7.5g/dL (12.0-15.5) Hematocrit 23.2% (36.0-47.0) Mean Corpuscular Volume 88fL (79-100) Mean Corpuscular Hemoglobin 28pg (25-35) Mean Corpuscular Hemoglobin Concent 32g/dL (31-37) Red Cell Distribution Width 15.4% (11.5-14.5) Platelet Count 276x10^3/uL (140-400) Urine Collection Type Unknown Urine Color Yellow Urine Clarity Clear Urine pH 6.0 Urine Specific [place] 1.015 Urine Protein Negativemg/dL (NEG-TRACE) Urine Glucose (UA) Negativemg/dL (NEG) Urine Ketones (Stick) Negativemg/dL (NEG) Urine Blood Negative (NEG) Urine Nitrite Negative (NEG) Urine Bilirubin Negative (NEG) Urine Urobilinogen Dipstick 0.2mg/dL (0.2 mg/dL) Urine Leukocyte Esterase Negative (NEG) Urine RBC 0/HPF (0-2) Urine WBC Occ/HPF (0-4) Urine Squamous Epithelial Cells Mod/LPF Urine Bacteria 0/HPF (0-FEW) Urine Mucus Mod/LPF Test 10/15/16 20:34 10/16/16 04:10 10/16/16 07:59 10/16/16 11:58 Glucose (Fingerstick) 176mg/dL (70-99) 169mg/dL (70-99) 190mg/dL (70-99) White Blood Count 8.0x10^3/uL (4.0-11.0) Red Blood Count 2.42x10^6/uL (3.50-5.40) Hemoglobin 6.9g/dL (12.0-15.5) Hematocrit 21.1% (36.0-47.0) Mean Corpuscular Volume 87fL (79-100) Mean Corpuscular Hemoglobin 29pg (25-35) Mean Corpuscular Hemoglobin Concent 33g/dL (31-37) Red Cell Distribution Width 15.6% (11.5-14.5) Platelet Count 264x10^3/uL (140-400) Sodium Level 145mmol/L (136-145) Potassium Level 4.3mmol/L (3.5-5.1) Chloride Level 110mmol/L (98-107) Carbon Dioxide Level 26mmol/L (21-32) Anion Gap 9 (6-14) Blood Urea Nitrogen 40mg/dL (7-20) Creatinine 1.5mg/dL (0.6-1.0) Estimated GFR (Cockcroft-Gault) 33.7 Glucose Level 214mg/dL (70-99) Calcium Level 8.0mg/dL (8.5-10.1) Test 10/16/16 13:55 10/16/16 17:03 10/16/16 21:04 10/17/16 04:51 Urine Color Yellow Urine Clarity Clear Urine pH 7.5 Urine Specific [place] 1.015 Urine Protein Negativemg/dL (NEG-TRACE) Urine Glucose (UA) Negativemg/dL (NEG) Urine Ketones (Stick) Negativemg/dL (NEG) Urine Blood Small (NEG) Urine Nitrite Positive (NEG) Urine Bilirubin Negative (NEG) Urine Urobilinogen Dipstick 0.2mg/dL (0.2 mg/dL) Urine Leukocyte Esterase Small (NEG) Urine RBC Occ/HPF (0-2) Urine WBC 1-4/HPF (0-4) Urine Squamous Epithelial Cells Occ/LPF Urine Bacteria Many/HPF (0-FEW) Glucose (Fingerstick) 216mg/dL (70-99) 173mg/dL (70-99) White Blood Count 12.5x10^3/uL (4.0-11.0) Red Blood Count 3.86x10^6/uL (3.50-5.40) Hemoglobin 11.1g/dL (12.0-15.5) Hematocrit 33.7% (36.0-47.0) Mean Corpuscular Volume 87fL (79-100) Mean Corpuscular Hemoglobin 29pg (25-35) Mean Corpuscular Hemoglobin Concent 33g/dL (31-37) Red Cell Distribution Width 15.0% (11.5-14.5) Platelet Count 331x10^3/uL (140-400) Laboratory Tests Test 10/16/16 11:58 10/16/16 13:55 10/16/16 17:03 10/16/16 21:04 Glucose (Fingerstick) 190mg/dL (70-99) 216mg/dL (70-99) 173mg/dL (70-99) Urine Color Yellow Urine Clarity Clear Urine pH 7.5 Urine Specific [place] 1.015 Urine Protein Negativemg/dL (NEG-TRACE) Urine Glucose (UA) Negativemg/dL (NEG) Urine Ketones (Stick) Negativemg/dL (NEG) Urine Blood Small (NEG) Urine Nitrite Positive (NEG) Urine Bilirubin Negative (NEG) Urine Urobilinogen Dipstick 0.2mg/dL (0.2 mg/dL) Urine Leukocyte Esterase Small (NEG) Urine RBC Occ/HPF (0-2) Urine WBC 1-4/HPF (0-4) Urine Squamous Epithelial Cells Occ/LPF Urine Bacteria Many/HPF (0-FEW) Test 10/17/16 04:51 White Blood Count 12.5x10^3/uL (4.0-11.0) Red Blood Count 3.86x10^6/uL (3.50-5.40) Hemoglobin 11.1g/dL (12.0-15.5) Hematocrit 33.7% (36.0-47.0) Mean Corpuscular Volume 87fL (79-100) Mean Corpuscular Hemoglobin 29pg (25-35) Mean Corpuscular Hemoglobin Concent 33g/dL (31-37) Red Cell Distribution Width 15.0% (11.5-14.5) Platelet Count 331x10^3/uL (140-400) Medications Current Medications Ondansetron HCl (Zofran) 4 mg PRN Q8HRS PRN IV NAUSEA/VOMITING; Start 10/12/16 at 15:30; Stop 10/13/16 at 15:29; Status DC Acetaminophen (Tylenol) 650 mg PRN Q4HRS PRN PO FEVER; Start 10/12/16 at 15:30 ; Stop 10/13/16 at 15:29; Status DC Pantoprazole Sodium (Protonix) 40 mg DAILYAC PO Last administered on 10/16/16 08:59; Start 10/13/16 at 07:30 Famotidine (Pepcid) 20 mg QHS PO Last administered on 10/16/16 20:23; Start at 21:00 Amlodipine Besylate (Norvasc) 5 mg DAILY PO Last administered on 10/16/16 08: 59; Start 10/13/16 at 09:00 Amoxicillin/ Clavulanate Potassium (Augmentin 500/ 125mg) 1 tab BID PO Last administered on 10/14/16 21:42; Start 10/13/16 at 09:00; Stop 10/14/16 at 21:01 ; Status DC Lisinopril (Prinivil) 40 mg DAILY PO Last administered on 10/16/16 08:59; Start 10/13/16 at 09:00 Citalopram Hydrobromide (Celexa) 40 mg QHS PO Last administered on 10/16/16 20 :23; Start 10/13/16 at 21:00 Non-Formulary Medication 1 cap HS PO ; Start 10/13/16 at 21:00; Stop 10/13/16 at 21:00; Status DC Famotidine (Pepcid) 20 mg DAILY PO ; Start 10/13/16 at 09:00; Status Cancel Insulin Aspart (Novolog) 0-5 UNITS TIDWMEALS SQ Last administered on 10/15/16 18:14; Start 10/13/16 at 12:00 Dextrose 12.5 gm PRN Q15MIN PRN IV SEE COMMENTS; Start 10/13/16 at 08:30 Acetaminophen (Tylenol) 325 mg PRN Q6HRS PRN PO MILD PAIN / TEMP Last administered on 10/15/16 21:01; Start 10/14/16 at 22:00 Furosemide 20 mg 20 mg 1X PRN PRN IV Blood transfusion; Start 10/16/16 at 08:30 ; Stop 10/17/16 at 08:29 Ceftriaxone Sodium/Sodium Chloride (Rocephin/Iv Sodium Chloride 0.9% 50ml) 50 ml @ 100 mls/hr Q24H IV Last administered on 10/16/16 09:00; Start 10/16/16 at 09:00 Polyethylene Glycol (miraLAX Powder BULK BOTTLE) 238 gm 1X ONCE PO Last administered on 10/16/16 13:31; Start 10/16/16 at 11:45; Stop 10/16/16 at 11:54 ; Status DC Bisacodyl (Dulcolax Tab) 10 mg 1X ONCE PO Last administered on 10/16/16 13:31 ; Start 10/16/16 at 11:45; Stop 10/16/16 at 11:53; Status DC Ondansetron HCl (Zofran) 4 mg PRN Q6HRS PRN IV Nausea; Start 10/17/16 at 07:00 ; Stop 10/18/16 at 06:59 Fentanyl Citrate (Fentanyl 2ml Vial) 25 mcg PRN Q5MIN PRN IV MILD PAIN; Start 10/17/16 at 07:00; Stop 10/18/16 at 06:59 Fentanyl Citrate (Fentanyl 2ml Vial) 50 mcg PRN Q5MIN PRN IV MODERATE PAIN; Start 10/17/16 at 07:00; Stop 2/22/17 at 06:59 Morphine Sulfate 1 mg 1 mg PRN Q10MIN PRN IV SEVERE PAIN; Start 10/17/16 at 07: 00; Stop 10/18/16 at 06:59 Lactated Ringer's (Iv Lactated Ringers) 1,000 ml @ 0 mls/hr Q0M IV ; Start at 07:00; Stop 10/17/16 at 18:59 Lidocaine HCl 2 ml 1X PRN PRN ID IV START; Start 10/17/16 at 07:00; Stop at 06:59 Hydromorphone HCl (Dilaudid) 0.5 mg PRN Q10MIN PRN IV SEVERE PAIN, Second choice; Start 10/17/16 at 07:00; Stop 10/18/16 at 06:59 Prochlorperazine Edisylate (Compazine) 5 mg PACU PRN PRN IV NAUSEA; Start 10/17 at 07:00; Stop 10/18/16 at 06:59 Active Scripts Active Amox Tr-K Clv 500-125 Mg Tab (Amoxicillin/Potassium Clav) 1 Each Tablet 1 Tab PO BID 3 Days Amlodipine Besylate 5 Mg Tablet 5 Mg PO DAILY 30 Days Miralax (Polyethylene Glycol 3350) 17 Gm Powd.pack 17 Gm PO DAILY 30 Days Reported Glipizide 10 Mg Tablet 1 Tab PO DAILYWBKFT Glipizide 5 Mg Tablet 1 Tab PO DAILYWSUP Aspirin 81 Mg Tab.chew 1 Tab PO DAILY Vitamin D (Cholecalciferol (Vitamin D3)) 5,000 Unit Tablet 5,000 Unit PO WEEKLY Ranitidine Hcl 150 Mg Capsule 150 Mg PO BID Alendronate Sodium 70 Mg Tablet 70 Mg PO WEEKLY Lisinopril 40 Mg Tablet 1 Tab PO DAILY Citalopram Hbr (Citalopram Hydrobromide) 40 Mg Tablet 1 Tab PO HS Omeprazole 40 Mg Capsule. 1 Cap PO HS Vitals/I & O Vital Sign - Last 24 Hours 10/16/16 10/16/16 10/16/16 10/16/16 08:59 08:59 11:00 12:26 Temp 98.8 98.2 98.8 98.2 Pulse 72 72 76 77 Resp 17 17 B/P 154/70 154/70 150/55 149/54 Pulse Ox 94 O2 Delivery Room Air 10/16/16 10/16/16 10/16/16 10/16/16 12:40 13:32 14:37 15:08 Temp 98.2 97.9 97.9 97.9 98.2 97.9 97.9 97.9 Pulse 76 84 66 66 Resp 18 18 16 16 B/P 135/54 153/68 159/69 159/69 Pulse Ox 94 O2 Delivery Room Air 10/16/16 10/16/16 10/16/16 10/16/16 16:09 16:24 17:25 17:42 Temp 98.8 98.2 97.5 97.5 98.8 98.2 97.5 97.5 Pulse 77 75 68 68 Resp 18 B/P 155/86 172/73 168/70 168/70 10/16/16 10/16/16 10/16/16 10/16/16 18:29 19:05 19:25 20:00 Temp 98.1 97.9 98.8 98.1 97.9 98.8 Pulse 71 68 68 Resp 16 B/P 169/80 172/77 169/77 Pulse Ox 97 O2 Delivery Room Air Room Air 10/16/16 10/17/16 23:35 03:00 Temp 99.3 97.7 99.3 97.7 Pulse 83 75 Resp 18 B/P 188/89 172/80 Pulse Ox 95 95 O2 Delivery Room Air Room Air Intake and Output 10/16/16 10/16/16 10/17/16 15:00 23:00 07:00 Intake Total 340 ml 1050 ml 200 ml Balance 340 ml 1050 ml 200 ml ELEN FERMIN MD Oct 17, 2016 08:32
[2016-10-17] MEDS ORDERED: PEG 3350/NA SULF,BICARB,CL/KCL 4,000 ML SOLUTION. PO STA (08:40)
[2016-10-17] MEDS: CEFTRIAXONE SODIUM 1 GM in IV NORMAL SALINE 50ML 50 ML IV SCH (09:37)
[2016-10-17] MEDS: PANTOPRAZOLE 40 MG TABLET. PO SCH (09:37)
[2016-10-17] MEDS: LISINOPRIL 40 MG TABLET. PO SCH (09:38)
[2016-10-17] MEDS: AMLODIPINE BESYLATE 5 MG TABLET PO SCH (09:38)
[2016-10-17] MEDS ORDERED: PROPOFOL 40 ML IV ONE (17:24)
[2016-10-17] MEDS ORDERED: LIDOCAINE 2% PF Vial for OR 5 ML VIAL. ONE (17:25)
[2016-10-17] MEDS ORDERED: EPINEPHRINE 1 MG/10 ML DISP.SYRIN. SQ ONE (17:43)
--- NOTE | 2016-10-17 18:09 | PDOC4 ---
Operative Note Operative Note Colonoscopy with endo-clipping/epi-injection Meds propofol 150 mg iv Pre-op dx rectal bleed/acute blood loss anemia post-op dx internal hemorrhoids sigmoid diverticulosis rectal stercoral ulcer S/p epi injection 3 cc and endoclips x 2 Plan medical therapy serial cbcs/transfusions as needed YOLANDA REINOSO MD Oct 17, 2016 18:09
[2016-10-17] MEDS: FAMOTIDINE 20 MG TABLET. PO SCH (20:01)
[2016-10-17] MEDS: CITALOPRAM 20 MG TABLET. PO SCH (20:02)
[2016-10-18 03:29] VITALS: BP 105/59
[2016-10-18 04:08] LABS: HEMATOCRIT 26.7 % (36.0-47.0); RED BLOOD COUNT 3.04 x10^6/uL (3.50-5.40); RED CELL DISTRIBUTION WIDTH 14.9 % (11.5-14.5); WHITE BLOOD COUNT 9.7 x10^3/uL (4.0-11.0)
[2016-10-18 04:34] LABS: ALBUMIN 2.1 g/dL (3.4-5.0); ALBUMIN/GLOBULIN RATIO 0.6 (1.0-1.7); CALCIUM 7.9 mg/dL (8.5-10.1); CREATININE 1.1 mg/dL (0.6-1.0); GFR 48.2; POTASSIUM 4.1 mmol/L (3.5-5.1); TOTAL BILIRUBIN 0.4 mg/dL (0.2-1.0); TOTAL PROTEIN 5.5 g/dL (6.4-8.2)
[2016-10-18 07:39] VITALS: BP 148/69
[2016-10-18] MEDS: INSULIN ASPART 300 UNITS/3 ML INSULN.PEN SQ SCH ×3 (08:00→18:11)
[2016-10-18] MEDS ORDERED: EPINEPHRINE 1 MG/10 ML DISP.SYRIN. ONE (08:36)
--- NOTE | 2016-10-18 09:35 | PDOC ---
PROGRESS NOTES Subjective Subjective Patient without complaint, denies pain. Objective Objective Vital Signs Date Time Temp Pulse Resp B/P Pulse Ox O2 Delivery O2 Flow Rate FiO2 10/18/16 07:39 99.7 65 20 148/69 94 Room Air 99.7 Intake and Output 10/18/16 07:00 Intake Total 740 ml Balance 740 ml Intake Oral 240 ml IV Total 500 ml # Voids 4 # Bowel Movements 6 Physical Exam Abdomen: Normal bowel sounds, Soft, No tenderness Heart: Regular rate Extremities: No edema General: Alert, No acute distress Lungs: Clear to auscultation Assessment Assessment Problems Medical Problems: (1) Lower GI bleed Status: Acute Plan Plan of Care 1. Rectal bleeding - patient had colonoscopy yesterday, Dr Gaston treated rectal ulcer with clipping and Epi injection. No report of bleeding since then. Hgb decreased today but could be partly dilutional as she had IVF yesterday when she was NPO. Advance diet, continue to follow lab. 2. DM2 - controlled. 3. HTN - improving, continue present meds. 4. fever - no recurrence. Continue Rocephin, urine culture still pending. Comment Review of Relevant I have reviewed the following items casie (where applicable) has been applied. Labs Laboratory Tests Test 10/16/16 11:58 10/16/16 13:55 10/16/16 17:03 10/16/16 21:04 Glucose (Fingerstick) 190mg/dL (70-99) 216mg/dL (70-99) 173mg/dL (70-99) Urine Color Yellow Urine Clarity Clear Urine pH 7.5 Urine Specific [place] 1.015 Urine Protein Negativemg/dL (NEG-TRACE) Urine Glucose (UA) Negativemg/dL (NEG) Urine Ketones (Stick) Negativemg/dL (NEG) Urine Blood Small (NEG) Urine Nitrite Positive (NEG) Urine Bilirubin Negative (NEG) Urine Urobilinogen Dipstick 0.2mg/dL (0.2 mg/dL) Urine Leukocyte Esterase Small (NEG) Urine RBC Occ/HPF (0-2) Urine WBC 1-4/HPF (0-4) Urine Squamous Epithelial Cells Occ/LPF Urine Bacteria Many/HPF (0-FEW) Test 10/17/16 04:51 10/17/16 08:10 10/17/16 11:53 10/17/16 20:42 White Blood Count 12.5x10^3/uL (4.0-11.0) Red Blood Count 3.86x10^6/uL (3.50-5.40) Hemoglobin 11.1g/dL (12.0-15.5) Hematocrit 33.7% (36.0-47.0) Mean Corpuscular Volume 87fL (79-100) Mean Corpuscular Hemoglobin 29pg (25-35) Mean Corpuscular Hemoglobin Concent 33g/dL (31-37) Red Cell Distribution Width 15.0% (11.5-14.5) Platelet Count 331x10^3/uL (140-400) Glucose (Fingerstick) 180mg/dL (70-99) 182mg/dL (70-99) 143mg/dL (70-99) Test 10/18/16 03:35 10/18/16 07:38 White Blood Count 9.7x10^3/uL (4.0-11.0) Red Blood Count 3.04x10^6/uL (3.50-5.40) Hemoglobin 9.0g/dL (12.0-15.5) Hematocrit 26.7% (36.0-47.0) Mean Corpuscular Volume 88fL (79-100) Mean Corpuscular Hemoglobin 30pg (25-35) Mean Corpuscular Hemoglobin Concent 34g/dL (31-37) Red Cell Distribution Width 14.9% (11.5-14.5) Platelet Count 295x10^3/uL (140-400) Sodium Level 142mmol/L (136-145) Potassium Level 4.1mmol/L (3.5-5.1) Chloride Level 108mmol/L (98-107) Carbon Dioxide Level 27mmol/L (21-32) Anion Gap 7 (6-14) Blood Urea Nitrogen 24mg/dL (7-20) Creatinine 1.1mg/dL (0.6-1.0) Estimated GFR (Cockcroft-Gault) 48.2 BUN/Creatinine Ratio 22 (6-20) Glucose Level 111mg/dL (70-99) Calcium Level 7.9mg/dL (8.5-10.1) Total Bilirubin 0.4mg/dL (0.2-1.0) Aspartate Amino Transf (AST/SGOT) 21U/L (15-37) Alanine Aminotransferase (ALT/SGPT) 22U/L (14-59) Alkaline Phosphatase 47U/L (46-116) Total Protein 5.5g/dL (6.4-8.2) Albumin 2.1g/dL (3.4-5.0) Albumin/Globulin Ratio 0.6 (1.0-1.7) Glucose (Fingerstick) 105mg/dL (70-99) Laboratory Tests Test 10/17/16 11:53 10/17/16 20:42 10/18/16 03:35 10/18/16 07:38 Glucose (Fingerstick) 182mg/dL (70-99) 143mg/dL (70-99) 105mg/dL (70-99) White Blood Count 9.7x10^3/uL (4.0-11.0) Red Blood Count 3.04x10^6/uL (3.50-5.40) Hemoglobin 9.0g/dL (12.0-15.5) Hematocrit 26.7% (36.0-47.0) Mean Corpuscular Volume 88fL (79-100) Mean Corpuscular Hemoglobin 30pg (25-35) Mean Corpuscular Hemoglobin Concent 34g/dL (31-37) Red Cell Distribution Width 14.9% (11.5-14.5) Platelet Count 295x10^3/uL (140-400) Sodium Level 142mmol/L (136-145) Potassium Level 4.1mmol/L (3.5-5.1) Chloride Level 108mmol/L (98-107) Carbon Dioxide Level 27mmol/L (21-32) Anion Gap 7 (6-14) Blood Urea Nitrogen 24mg/dL (7-20) Creatinine 1.1mg/dL (0.6-1.0) Estimated GFR (Cockcroft-Gault) 48.2 BUN/Creatinine Ratio 22 (6-20) Glucose Level 111mg/dL (70-99) Calcium Level 7.9mg/dL (8.5-10.1) Total Bilirubin 0.4mg/dL (0.2-1.0) Aspartate Amino Transf (AST/SGOT) 21U/L (15-37) Alanine Aminotransferase (ALT/SGPT) 22U/L (14-59) Alkaline Phosphatase 47U/L (46-116) Total Protein 5.5g/dL (6.4-8.2) Albumin 2.1g/dL (3.4-5.0) Albumin/Globulin Ratio 0.6 (1.0-1.7) Medications Current Medications Ondansetron HCl (Zofran) 4 mg PRN Q8HRS PRN IV NAUSEA/VOMITING; Start 10/12/16 at 15:30; Stop 10/13/16 at 15:29; Status DC Acetaminophen (Tylenol) 650 mg PRN Q4HRS PRN PO FEVER; Start 10/12/16 at 15:30 ; Stop 10/13/16 at 15:29; Status DC Pantoprazole Sodium (Protonix) 40 mg DAILYAC PO Last administered on 10/17/16 09:37; Start 10/13/16 at 07:30 Famotidine (Pepcid) 20 mg QHS PO Last administered on 10/17/16 20:01; Start at 21:00 Amlodipine Besylate (Norvasc) 5 mg DAILY PO Last administered on 10/17/16 09: 38; Start 10/13/16 at 09:00 Amoxicillin/ Clavulanate Potassium (Augmentin 500/ 125mg) 1 tab BID PO Last administered on 10/14/16 21:42; Start 10/13/16 at 09:00; Stop 10/14/16 at 21:01 ; Status DC Lisinopril (Prinivil) 40 mg DAILY PO Last administered on 10/17/16 09:38; Start 10/13/16 at 09:00 Citalopram Hydrobromide (Celexa) 40 mg QHS PO Last administered on 10/17/16 20 :02; Start 10/13/16 at 21:00 Non-Formulary Medication 1 cap HS PO ; Start 10/13/16 at 21:00; Stop 10/13/16 at 21:00; Status DC Famotidine (Pepcid) 20 mg DAILY PO ; Start 10/13/16 at 09:00; Status Cancel Insulin Aspart (Novolog) 0-5 UNITS TIDWMEALS SQ Last administered on 2/19/17at 18:14; Start 10/13/16 at 12:00 Dextrose 12.5 gm PRN Q15MIN PRN IV SEE COMMENTS; Start 10/13/16 at 08:30 Acetaminophen (Tylenol) 325 mg PRN Q6HRS PRN PO MILD PAIN / TEMP Last administered on 10/15/16 21:01; Start 10/14/16 at 22:00 Furosemide 20 mg 20 mg 1X PRN PRN IV Blood transfusion; Start 10/16/16 at 08:30 ; Stop 10/17/16 at 08:29; Status DC Ceftriaxone Sodium/Sodium Chloride (Rocephin/Iv Sodium Chloride 0.9% 50ml) 50 ml @ 100 mls/hr Q24H IV Last administered on 10/17/16 09:37; Start 10/16/16 at 09:00 Polyethylene Glycol (miraLAX Powder BULK BOTTLE) 238 gm 1X ONCE PO Last administered on 10/16/16 13:31; Start 10/16/16 at 11:45; Stop 10/16/16 at 11:54 ; Status DC Bisacodyl (Dulcolax Tab) 10 mg 1X ONCE PO Last administered on 10/16/16 13:31 ; Start 10/16/16 at 11:45; Stop 10/16/16 at 11:53; Status DC Ondansetron HCl (Zofran) 4 mg PRN Q6HRS PRN IV Nausea; Start 10/17/16 at 07:00 ; Stop 10/18/16 at 06:59; Status DC Fentanyl Citrate (Fentanyl 2ml Vial) 25 mcg PRN Q5MIN PRN IV MILD PAIN; Start 10/17/16 at 07:00; Stop 10/18/16 at 06:59; Status DC Fentanyl Citrate (Fentanyl 2ml Vial) 50 mcg PRN Q5MIN PRN IV MODERATE PAIN; Start 10/17/16 at 07:00; Stop 10/18/16 at 06:59; Status DC Morphine Sulfate 1 mg 1 mg PRN Q10MIN PRN IV SEVERE PAIN; Start 10/17/16 at 07: 00; Stop 10/18/16 at 06:59; Status DC Lactated Ringer's (Iv Lactated Ringers) 1,000 ml @ 0 mls/hr Q0M IV ; Start at 07:00; Stop 10/17/16 at 18:59; Status DC Lidocaine HCl 2 ml 1X PRN PRN ID IV START; Start 10/17/16 at 07:00; Stop at 06:59; Status DC Hydromorphone HCl (Dilaudid) 0.5 mg PRN Q10MIN PRN IV SEVERE PAIN, Second choice; Start 10/17/16 at 07:00; Stop 10/18/16 at 06:59; Status DC Prochlorperazine Edisylate (Compazine) 5 mg PACU PRN PRN IV NAUSEA; Start 10/17 at 07:00; Stop 10/18/16 at 06:59; Status DC Sodium Cl/Sod Bicarb/Potass Cl/ PEG 4000 ml 4,000 ml 1X STAT PO ; Start at 08:40; Stop 10/17/16 at 09:25; Status DC Lactated Ringer's 1,000 ml @ 100 mls/hr Q10H IV Last administered on 15:47; Start 10/17/16 at 15:45; Stop 10/18/16 at 00:52; Status DC Propofol (Diprivan) 40 ml @ As Directed STK-MED ONCE IV ; Start 10/17/16 at 17: 24; Stop 10/17/16 at 17:25; Status DC Lidocaine HCl (Lidocaine Pf 2% Vial) 5 ml STK-MED ONCE .ROUTE ; Start 10/17/16 at 17:25; Stop 10/17/16 at 17:26; Status DC Epinephrine HCl 3 mg STK-MED ONCE SQ Last administered on 10/17/16t 17:43; Start 10/17/16 at 17:43; Stop 10/17/16 at 18:06; Status DC Epinephrine HCl 1 mg STK-MED ONCE .ROUTE ; Start 10/18/16 at 08:36; Stop at 08:37; Status DC Active Scripts Active Amox Tr-K Clv 500-125 Mg Tab (Amoxicillin/Potassium Clav) 1 Each Tablet 1 Tab PO BID 3 Days Amlodipine Besylate 5 Mg Tablet 5 Mg PO DAILY 30 Days Miralax (Polyethylene Glycol 3350) 17 Gm Powd.pack 17 Gm PO DAILY 30 Days Reported Glipizide 10 Mg Tablet 1 Tab PO DAILYWBKFT Glipizide 5 Mg Tablet 1 Tab PO DAILYWSUP Aspirin 81 Mg Tab.chew 1 Tab PO DAILY Vitamin D (Cholecalciferol (Vitamin D3)) 5,000 Unit Tablet 5,000 Unit PO WEEKLY Ranitidine Hcl 150 Mg Capsule 150 Mg PO BID Alendronate Sodium 70 Mg Tablet 70 Mg PO WEEKLY Lisinopril 40 Mg Tablet 1 Tab PO DAILY Citalopram Hbr (Citalopram Hydrobromide) 40 Mg Tablet 1 Tab PO HS Omeprazole 40 Mg Capsule. 1 Cap PO HS Vitals/I & O Vital Sign - Last 24 Hours 10/17/16 10/17/16 10/17/16 10/17/16 09:38 09:38 11:00 12:06 Temp 98.1 98.1 Pulse 75 75 72 70 Resp 18 B/P 184/90 184/90 177/97 153/63 Pulse Ox 95 O2 Delivery Room Air 10/17/16 10/17/16 10/17/16 10/17/16 15:00 15:38 15:38 18:07 Temp 98.1 98.1 98.1 98.1 Pulse 63 69 83 Resp 18 20 18 B/P 148/51 115/59 Pulse Ox 96 96 99 O2 Delivery Room Air Room Air Nasal Cannula 10/17/16 10/17/16 10/17/16 10/17/16 18:22 18:56 19:11 19:26 Temp 98.0 98.0 Pulse 86 74 69 73 Resp 18 B/P 123/65 137/60 132/53 145/67 Pulse Ox 99 O2 Delivery Room Air 10/17/16 10/17/16 10/17/16 10/17/16 19:56 20:00 20:31 21:01 Temp 99.9 101.1 99.9 101.1 Pulse 77 79 84 Resp 16 16 B/P 140/70 150/64 158/73 Pulse Ox 95 94 O2 Delivery Room Air Room Air Room Air 10/17/16 10/17/16 10/18/16 10/18/16 22:01 23:49 03:29 07:39 Temp 98.8 99.0 98.1 99.7 98.8 99.0 98.1 99.7 Pulse 71 74 59 65 Resp 16 16 16 20 B/P 149/75 158/86 105/59 148/69 Pulse Ox 93 95 95 94 O2 Delivery Room Air Room Air Room Air Room Air Intake and Output 10/17/16 10/17/16 10/18/16 15:00 23:00 07:00 Intake Total 500 ml 240 ml Balance 500 ml 240 ml ELEN FERMIN MD Oct 18, 2016 09:35
[2016-10-18] MEDS: PANTOPRAZOLE 40 MG TABLET. PO SCH (10:14)
[2016-10-18] MEDS: LISINOPRIL 40 MG TABLET. PO SCH (10:15)
[2016-10-18] MEDS: CEFTRIAXONE SODIUM 1 GM in IV NORMAL SALINE 50ML 50 ML IV SCH (10:16)
[2016-10-18] MEDS: AMLODIPINE BESYLATE 5 MG TABLET PO SCH (10:16)
[2016-10-18 11:00] VITALS: BP 138/64
--- NOTE | 2016-10-18 11:28 | PDOC ---
Subjective: Subjective: Denies pain. Objective: Objective: Per staff - no further bleeding but is having diarrhea. Vital Signs: Vital Signs Date Time Temp Pulse Resp B/P Pulse Ox O2 Delivery O2 Flow Rate FiO2 10/18/16 11:00 98.4 71 20 138/64 95 Room Air 98.4 Labs: Laboratory Tests Test 10/17/16 11:53 10/17/16 20:42 10/18/16 03:35 10/18/16 07:38 Glucose (Fingerstick) 182mg/dL 143mg/dL 105mg/dL White Blood Count 9.7x10^3/uL Red Blood Count 3.04x10^6/uL Hemoglobin 9.0g/dL Hematocrit 26.7% Mean Corpuscular Volume 88fL Mean Corpuscular Hemoglobin 30pg Mean Corpuscular Hemoglobin Concent 34g/dL Red Cell Distribution Width 14.9% Platelet Count 295x10^3/uL Sodium Level 142mmol/L Potassium Level 4.1mmol/L Chloride Level 108mmol/L Carbon Dioxide Level 27mmol/L Anion Gap 7 Blood Urea Nitrogen 24mg/dL Creatinine 1.1mg/dL Estimated GFR (Cockcroft-Gault) 48.2 BUN/Creatinine Ratio 22 Glucose Level 111mg/dL Calcium Level 7.9mg/dL Total Bilirubin 0.4mg/dL Aspartate Amino Transf (AST/SGOT) 21U/L Alanine Aminotransferase (ALT/SGPT) 22U/L Alkaline Phosphatase 47U/L Total Protein 5.5g/dL Albumin 2.1g/dL Albumin/Globulin Ratio 0.6 Imaging: Colonoscopy 10/17/16: internal hemorrhoids, sigmoid diverticulosis, rectal stercoral ulcer s/p epi injection 3 cc and endoclips x 2 PE: GEN: NAD LUNGS: CTAB HEART: RRR ABD: S/ND/NT NEURO/PSYCH: answers yes/no A/P: Hematochezia - resolved -Hgb from 11.1 to 9 today Rectal stercoral ulcer s/p epi inj and endoclips -- On clear liquids. Will discuss advancing diet w/ Dr. Gaston. Monitor labs. FLORENCE LINDQUIST Oct 18, 2016 11:28
[2016-10-18 15:00] VITALS: BP 123/52
[2016-10-18 19:45] VITALS: BP 108/53
[2016-10-18] MEDS: FAMOTIDINE 20 MG TABLET. PO SCH (21:09)
[2016-10-18] MEDS: CITALOPRAM 20 MG TABLET. PO SCH (21:09)
[2016-10-18 23:14] VITALS: BP 147/67
[2016-10-19 03:44] VITALS: BP 150/70
[2016-10-19 05:31] LABS: HEMATOCRIT 27.3 % (36.0-47.0); HEMOGLOBIN 9.1 g/dL (12.0-15.5); RED BLOOD COUNT 3.16 x10^6/uL (3.50-5.40); WHITE BLOOD COUNT 8.2 x10^3/uL (4.0-11.0)
[2016-10-19 07:00] VITALS: BP 145/57
[2016-10-19] MEDS: INSULIN ASPART 300 UNITS/3 ML INSULN.PEN SQ SCH ×3 (08:00→18:18)
--- NOTE | 2016-10-19 09:10 | PDOC ---
PROGRESS NOTES Subjective Subjective Patient without complaint, denies pain. Objective Objective Vital Signs Date Time Temp Pulse Resp B/P Pulse Ox O2 Delivery O2 Flow Rate FiO2 10/19/16 07:00 98.7 59 16 145/57 93 Room Air 98.7 Intake and Output 10/19/16 07:00 Intake Total 1320 ml Balance 1320 ml Intake Oral 1320 ml # Voids 10 # Bowel Movements 5 Physical Exam Abdomen: Normal bowel sounds, Soft, No tenderness Heart: Regular rate Extremities: No edema General: Alert, No acute distress (resting comfortable in bed) Lungs: Clear to auscultation Assessment Assessment Problems Medical Problems: (1) Lower GI bleed Status: Acute Plan Plan of Care 1. Rectal ulcer with bleeding - stable, no evidence of further bleeding, Hgb unchanged on lab compared to yesterday. 2. UTI - initial report shows Pseudomonas. Fevers have resolved. Will change to po Levaquin and await final culture results. 3. DM2 - controlled, continue Metformin. 4. HTN - controlled, continue present meds. 5. discharge planning - anticipate home with her daughter tomorrow if she remains stable. Message left for Alfreda about this. Comment Review of Relevant I have reviewed the following items casie (where applicable) has been applied. Labs Laboratory Tests Test 10/17/16 11:53 10/17/16 20:42 10/18/16 03:35 10/18/16 07:38 Glucose (Fingerstick) 182mg/dL (70-99) 143mg/dL (70-99) 105mg/dL (70-99) White Blood Count 9.7x10^3/uL (4.0-11.0) Red Blood Count 3.04x10^6/uL (3.50-5.40) Hemoglobin 9.0g/dL (12.0-15.5) Hematocrit 26.7% (36.0-47.0) Mean Corpuscular Volume 88fL (79-100) Mean Corpuscular Hemoglobin 30pg (25-35) Mean Corpuscular Hemoglobin Concent 34g/dL (31-37) Red Cell Distribution Width 14.9% (11.5-14.5) Platelet Count 295x10^3/uL (140-400) Sodium Level 142mmol/L (136-145) Potassium Level 4.1mmol/L (3.5-5.1) Chloride Level 108mmol/L (98-107) Carbon Dioxide Level 27mmol/L (21-32) Anion Gap 7 (6-14) Blood Urea Nitrogen 24mg/dL (7-20) Creatinine 1.1mg/dL (0.6-1.0) Estimated GFR (Cockcroft-Gault) 48.2 BUN/Creatinine Ratio 22 (6-20) Glucose Level 111mg/dL (70-99) Calcium Level 7.9mg/dL (8.5-10.1) Total Bilirubin 0.4mg/dL (0.2-1.0) Aspartate Amino Transf (AST/SGOT) 21U/L (15-37) Alanine Aminotransferase (ALT/SGPT) 22U/L (14-59) Alkaline Phosphatase 47U/L (46-116) Total Protein 5.5g/dL (6.4-8.2) Albumin 2.1g/dL (3.4-5.0) Albumin/Globulin Ratio 0.6 (1.0-1.7) Test 10/18/16 11:48 10/18/16 16:45 10/18/16 20:53 10/19/16 05:09 Glucose (Fingerstick) 219mg/dL (70-99) 219mg/dL (70-99) 241mg/dL (70-99) White Blood Count 8.2x10^3/uL (4.0-11.0) Red Blood Count 3.16x10^6/uL (3.50-5.40) Hemoglobin 9.1g/dL (12.0-15.5) Hematocrit 27.3% (36.0-47.0) Mean Corpuscular Volume 86fL (79-100) Mean Corpuscular Hemoglobin 29pg (25-35) Mean Corpuscular Hemoglobin Concent 33g/dL (31-37) Red Cell Distribution Width 15.0% (11.5-14.5) Platelet Count 328x10^3/uL (140-400) Test 10/19/16 07:23 Glucose (Fingerstick) 155mg/dL (70-99) Laboratory Tests Test 10/18/16 11:48 10/18/16 16:45 10/18/16 20:53 10/19/16 05:09 Glucose (Fingerstick) 219mg/dL (70-99) 219mg/dL (70-99) 241mg/dL (70-99) White Blood Count 8.2x10^3/uL (4.0-11.0) Red Blood Count 3.16x10^6/uL (3.50-5.40) Hemoglobin 9.1g/dL (12.0-15.5) Hematocrit 27.3% (36.0-47.0) Mean Corpuscular Volume 86fL (79-100) Mean Corpuscular Hemoglobin 29pg (25-35) Mean Corpuscular Hemoglobin Concent 33g/dL (31-37) Red Cell Distribution Width 15.0% (11.5-14.5) Platelet Count 328x10^3/uL (140-400) Test 10/19/16 07:23 Glucose (Fingerstick) 155mg/dL (70-99) Microbiology 10/16/16 Urine Culture - Preliminary, Resulted 10/16/16 Urine Culture Result 1 ([facility]) - Preliminary, Resulted Medications Current Medications Ondansetron HCl (Zofran) 4 mg PRN Q8HRS PRN IV NAUSEA/VOMITING; Start 10/12/16 at 15:30; Stop 10/13/16 at 15:29; Status DC Acetaminophen (Tylenol) 650 mg PRN Q4HRS PRN PO FEVER; Start 10/12/16 at 15:30 ; Stop 10/13/16 at 15:29; Status DC Pantoprazole Sodium (Protonix) 40 mg DAILYAC PO Last administered on 10/18/16 10:14; Start 10/13/16 at 07:30 Famotidine (Pepcid) 20 mg QHS PO Last administered on 10/18/16 21:09; Start at 21:00 Amlodipine Besylate (Norvasc) 5 mg DAILY PO Last administered on 10/18/16 10: 16; Start 10/13/16 at 09:00 Amoxicillin/ Clavulanate Potassium (Augmentin 500/ 125mg) 1 tab BID PO Last administered on 10/14/16 21:42; Start 10/13/16 at 09:00; Stop 10/14/16 at 21:01 ; Status DC Lisinopril (Prinivil) 40 mg DAILY PO Last administered on 10/18/16 10:15; Start 10/13/16 at 09:00 Citalopram Hydrobromide (Celexa) 40 mg QHS PO Last administered on 10/18/16 21 :09; Start 10/13/16 at 21:00 Non-Formulary Medication 1 cap HS PO ; Start 10/13/16 at 21:00; Stop 10/13/16 at 21:00; Status DC Famotidine (Pepcid) 20 mg DAILY PO ; Start 10/13/16 at 09:00; Status Cancel Insulin Aspart (Novolog) 0-5 UNITS TIDWMEALS SQ Last administered on 10/18/16 18:11; Start 10/13/16 at 12:00 Dextrose 12.5 gm PRN Q15MIN PRN IV SEE COMMENTS; Start 10/13/16 at 08:30 Acetaminophen (Tylenol) 325 mg PRN Q6HRS PRN PO MILD PAIN / TEMP Last administered on 10/15/16 21:01; Start 10/14/16 at 22:00 Furosemide 20 mg 20 mg 1X PRN PRN IV Blood transfusion; Start 10/16/16 at 08:30 ; Stop 10/17/16 at 08:29; Status DC Ceftriaxone Sodium/Sodium Chloride (Rocephin/Iv Sodium Chloride 0.9% 50ml) 50 ml @ 100 mls/hr Q24H IV Last administered on 10/18/16 10:16; Start 10/16/16 at 09:00 Polyethylene Glycol (miraLAX Powder BULK BOTTLE) 238 gm 1X ONCE PO Last administered on 10/16/16 13:31; Start 10/16/16 at 11:45; Stop 10/16/16 at 11:54 ; Status DC Bisacodyl (Dulcolax Tab) 10 mg 1X ONCE PO Last administered on 10/16/16 13:31 ; Start 10/16/16 at 11:45; Stop 10/16/16 at 11:53; Status DC Ondansetron HCl (Zofran) 4 mg PRN Q6HRS PRN IV Nausea; Start 10/17/16 at 07:00 ; Stop 10/18/16 at 06:59; Status DC Fentanyl Citrate (Fentanyl 2ml Vial) 25 mcg PRN Q5MIN PRN IV MILD PAIN; Start 10/17/16 at 07:00; Stop 10/18/16 at 06:59; Status DC Fentanyl Citrate (Fentanyl 2ml Vial) 50 mcg PRN Q5MIN PRN IV MODERATE PAIN; Start 10/17/16 at 07:00; Stop 10/18/16 at 06:59; Status DC Morphine Sulfate 1 mg 1 mg PRN Q10MIN PRN IV SEVERE PAIN; Start 10/17/16 at 07: 00; Stop 10/18/16 at 06:59; Status DC Lactated Ringer's (Iv Lactated Ringers) 1,000 ml @ 0 mls/hr Q0M IV ; Start at 07:00; Stop 10/17/16 at 18:59; Status DC Lidocaine HCl 2 ml 1X PRN PRN ID IV START; Start 10/17/16 at 07:00; Stop at 06:59; Status DC Hydromorphone HCl (Dilaudid) 0.5 mg PRN Q10MIN PRN IV SEVERE PAIN, Second choice; Start 10/17/16 at 07:00; Stop 10/18/16 at 06:59; Status DC Prochlorperazine Edisylate (Compazine) 5 mg PACU PRN PRN IV NAUSEA; Start 10/17 at 07:00; Stop 10/18/16 at 06:59; Status DC Sodium Cl/Sod Bicarb/Potass Cl/ PEG 4000 ml 4,000 ml 1X STAT PO ; Start at 08:40; Stop 10/17/16 at 09:25; Status DC Lactated Ringer's 1,000 ml @ 100 mls/hr Q10H IV Last administered on t 15:47; Start 10/17/16 at 15:45; Stop 10/18/16 at 00:52; Status DC Propofol (Diprivan) 40 ml @ As Directed STK-MED ONCE IV ; Start 10/17/16 at 17: 24; Stop 10/17/16 at 17:25; Status DC Lidocaine HCl (Lidocaine Pf 2% Vial) 5 ml STK-MED ONCE .ROUTE ; Start 10/17/16 at 17:25; Stop 10/17/16 at 17:26; Status DC Epinephrine HCl 3 mg STK-MED ONCE SQ Last administered on 10/17/16t 17:43; Start 10/17/16 at 17:43; Stop 10/17/16 at 18:06; Status DC Epinephrine HCl 1 mg STK-MED ONCE .ROUTE ; Start 10/18/16 at 08:36; Stop at 08:37; Status DC Active Scripts Active Amox Tr-K Clv 500-125 Mg Tab (Amoxicillin/Potassium Clav) 1 Each Tablet 1 Tab PO BID 3 Days Amlodipine Besylate 5 Mg Tablet 5 Mg PO DAILY 30 Days Miralax (Polyethylene Glycol 3350) 17 Gm Powd.pack 17 Gm PO DAILY 30 Days Reported Glipizide 10 Mg Tablet 1 Tab PO DAILYWBKFT Glipizide 5 Mg Tablet 1 Tab PO DAILYWSUP Aspirin 81 Mg Tab.chew 1 Tab PO DAILY Vitamin D (Cholecalciferol (Vitamin D3)) 5,000 Unit Tablet 5,000 Unit PO WEEKLY Ranitidine Hcl 150 Mg Capsule 150 Mg PO BID Alendronate Sodium 70 Mg Tablet 70 Mg PO WEEKLY Lisinopril 40 Mg Tablet 1 Tab PO DAILY Citalopram Hbr (Citalopram Hydrobromide) 40 Mg Tablet 1 Tab PO HS Omeprazole 40 Mg Capsule. 1 Cap PO HS Vitals/I & O Vital Sign - Last 24 Hours 10/18/16 10/18/16 10/18/16 10/18/16 10:15 10:16 11:00 15:00 Temp 98.4 98.8 98.4 98.8 Pulse 65 65 71 68 Resp 20 20 B/P 148/69 148/69 138/64 123/52 Pulse Ox 95 94 O2 Delivery Room Air Room Air 10/18/16 10/18/16 10/18/16 10/19/16 19:45 20:00 23:14 03:44 Temp 98.8 98.8 99.0 98.8 98.8 99.0 Pulse 71 64 67 Resp 16 20 16 B/P 108/53 147/67 150/70 Pulse Ox 94 95 94 O2 Delivery Room Air Room Air Room Air Room Air 10/19/16 07:00 Temp 98.7 98.7 Pulse 59 Resp 16 B/P 145/57 Pulse Ox 93 O2 Delivery Room Air Intake and Output 10/18/16 10/18/16 10/19/16 15:00 23:00 07:00 Intake Total 600 ml 480 ml 240 ml Balance 600 ml 480 ml 240 ml ELEN FERMIN MD Oct 19, 2016 09:10
[2016-10-19] MEDS: LISINOPRIL 40 MG TABLET. PO SCH (09:26)
[2016-10-19] MEDS: PANTOPRAZOLE 40 MG TABLET. PO SCH (09:26)
[2016-10-19] MEDS: AMLODIPINE BESYLATE 5 MG TABLET PO SCH (09:26)
[2016-10-19] MEDS ORDERED: LEVOFLOXACIN 500 MG TABLET PO ONE (09:30)
[2016-10-19 11:00] VITALS: BP 152/62
--- NOTE | 2016-10-19 11:45 | PDOC ---
Subjective: Subjective: Pt denies pain, bleeding. Eating okay. Objective: Objective: Per RN - no further bleeding, possible DC tomorrow, tolerating GI soft. Vital Signs: Vital Signs Date Time Temp Pulse Resp B/P Pulse Ox O2 Delivery O2 Flow Rate FiO2 10/19/16 11:00 98.4 65 18 152/62 94 Room Air 98.4 Labs: Laboratory Tests Test 10/18/16 11:48 10/18/16 16:45 10/18/16 20:53 10/19/16 07:23 Glucose (Fingerstick) 219mg/dL (70-99) 219mg/dL (70-99) 241mg/dL (70-99) 155mg/dL (70-99) PE: GEN: NAD, smiles ABD: S/ND/NT NEURO/PSYCH: nods yes/no A/P: Hematochezia - resolved -Hgb stable Rectal stercoral ulcer s/p epi inj and endoclips 10/17 -- No further bleeding. Possible DC tomorrow. Miralax chcf w/ h/o fecal impaction and ulcer. FLORENCE LINDQUIST Oct 19, 2016 11:45
[2016-10-19] MEDS: POLYETHYLENE GLYCOL 3350 17 GM PACKET. PO SCH (12:49)
[2016-10-19 15:00] VITALS: BP 102/70
[2016-10-19 19:00] VITALS: BP 135/64
[2016-10-19] MEDS: FAMOTIDINE 20 MG TABLET. PO SCH (20:22)
[2016-10-19] MEDS: CITALOPRAM 20 MG TABLET. PO SCH (20:22)
[2016-10-19 23:00] VITALS: BP 133/55
[2016-10-20 03:00] VITALS: BP 152/57
[2016-10-20] MEDS ORDERED: LEVOFLOXACIN 250 MG TABLET. PO SCH (06:00)
[2016-10-20 07:50] VITALS: BP 157/64
[2016-10-20] MEDS: PANTOPRAZOLE 40 MG TABLET. PO SCH (09:10)
[2016-10-20] MEDS: AMLODIPINE BESYLATE 5 MG TABLET PO SCH (09:11)
[2016-10-20] MEDS: POLYETHYLENE GLYCOL 3350 17 GM PACKET. PO SCH (09:11)
[2016-10-20] MEDS: LISINOPRIL 40 MG TABLET. PO SCH (09:11)
[2016-10-20] MEDS: INSULIN ASPART 300 UNITS/3 ML INSULN.PEN SQ SCH ×3 (09:14→18:15)
--- NOTE | 2016-10-20 09:43 | PDOC ---
PROGRESS NOTES Subjective Subjective Patient without complaint, denies pain. Objective Objective Vital Signs Date Time Temp Pulse Resp B/P Pulse Ox O2 Delivery O2 Flow Rate FiO2 10/20/16 09:11 63 157/64 10/20/16 07:50 98.1 17 91 Room Air 98.1 Intake and Output 10/20/16 07:00 Intake Total 700 ml Balance 700 ml Intake Oral 700 ml # Voids 7 Physical Exam Abdomen: Normal bowel sounds, Soft, No tenderness Heart: Regular rate Extremities: No edema General: Alert, No acute distress Lungs: Clear to auscultation Assessment Assessment Problems Medical Problems: (1) Lower GI bleed Status: Acute Plan Plan of Care 1. Rectal bleeding - resolved. Home today. 2. UTI - Pseudomonas. Home on po Levaquin to complete 7 days of tx. 3. constipation - Miralax daily. 4. DM2 - controlled with present meds. 5. HTN - controlled with present meds. 6. debility - patient is at baseline, daughter takes care of her at home. Comment Review of Relevant I have reviewed the following items casie (where applicable) has been applied. Labs Laboratory Tests Test 10/18/16 11:48 10/18/16 16:45 10/18/16 20:53 10/19/16 05:09 Glucose (Fingerstick) 219mg/dL (70-99) 219mg/dL (70-99) 241mg/dL (70-99) White Blood Count 8.2x10^3/uL (4.0-11.0) Red Blood Count 3.16x10^6/uL (3.50-5.40) Hemoglobin 9.1g/dL (12.0-15.5) Hematocrit 27.3% (36.0-47.0) Mean Corpuscular Volume 86fL (79-100) Mean Corpuscular Hemoglobin 29pg (25-35) Mean Corpuscular Hemoglobin Concent 33g/dL (31-37) Red Cell Distribution Width 15.0% (11.5-14.5) Platelet Count 328x10^3/uL (140-400) Test 10/19/16 07:23 10/19/16 11:59 10/19/16 17:10 10/19/16 20:35 Glucose (Fingerstick) 155mg/dL (70-99) 180mg/dL (70-99) 214mg/dL (70-99) 198mg/dL (70-99) Test 10/20/16 07:56 Glucose (Fingerstick) 179mg/dL (70-99) Laboratory Tests Test 10/19/16 11:59 10/19/16 17:10 10/19/16 20:35 10/20/16 07:56 Glucose (Fingerstick) 180mg/dL (70-99) 214mg/dL (70-99) 198mg/dL (70-99) 179mg/dL (70-99) Microbiology 10/16/16 Urine Culture - Final, Complete 10/16/16 Urine Culture Result 1 (KIRILL) - Final, Complete 10/16/16 Antimicrobic Susceptibility - Final, Complete Medications Current Medications Ondansetron HCl (Zofran) 4 mg PRN Q8HRS PRN IV NAUSEA/VOMITING; Start 10/12/16 at 15:30; Stop 10/13/16 at 15:29; Status DC Acetaminophen (Tylenol) 650 mg PRN Q4HRS PRN PO FEVER; Start 10/12/16 at 15:30 ; Stop 10/13/16 at 15:29; Status DC Pantoprazole Sodium (Protonix) 40 mg DAILYAC PO Last administered on 10/20/16 09:10; Start 10/13/16 at 07:30 Famotidine (Pepcid) 20 mg QHS PO Last administered on 10/19/16 20:22; Start at 21:00 Amlodipine Besylate (Norvasc) 5 mg DAILY PO Last administered on 10/20/16 09: 11; Start 10/13/16 at 09:00 Amoxicillin/ Clavulanate Potassium (Augmentin 500/ 125mg) 1 tab BID PO Last administered on 10/14/16 21:42; Start 10/13/16 at 09:00; Stop 10/14/16 at 21:01 ; Status DC Lisinopril (Prinivil) 40 mg DAILY PO Last administered on 10/20/16 09:11; Start 10/13/16 at 09:00 Citalopram Hydrobromide (Celexa) 40 mg QHS PO Last administered on 10/19/16 20 :22; Start 10/13/16 at 21:00 Non-Formulary Medication 1 cap HS PO ; Start 10/13/16 at 21:00; Stop 10/13/16 at 21:00; Status DC Famotidine (Pepcid) 20 mg DAILY PO ; Start 10/13/16 at 09:00; Status Cancel Insulin Aspart (Novolog) 0-5 UNITS TIDWMEALS SQ Last administered on 10/20/16 09:14; Start 10/13/16 at 12:00 Dextrose 12.5 gm PRN Q15MIN PRN IV SEE COMMENTS; Start 10/13/16 at 08:30 Acetaminophen (Tylenol) 325 mg PRN Q6HRS PRN PO MILD PAIN / TEMP Last administered on 10/15/16 21:01; Start 10/14/16 at 22:00 Furosemide 20 mg 20 mg 1X PRN PRN IV Blood transfusion; Start 10/16/16 at 08:30 ; Stop 10/17/16 at 08:29; Status DC Ceftriaxone Sodium/Sodium Chloride (Rocephin/Iv Sodium Chloride 0.9% 50ml) 50 ml @ 100 mls/hr Q24H IV Last administered on 10/18/16 10:16; Start 10/16/16 at 09:00; Stop 10/19/16 at 09:06; Status DC Polyethylene Glycol (miraLAX Powder BULK BOTTLE) 238 gm 1X ONCE PO Last administered on 10/16/16 13:31; Start 10/16/16 at 11:45; Stop 10/16/16 at 11:54 ; Status DC Bisacodyl (Dulcolax Tab) 10 mg 1X ONCE PO Last administered on 10/16/16 13:31 ; Start 10/16/16 at 11:45; Stop 10/16/16 at 11:53; Status DC Ondansetron HCl (Zofran) 4 mg PRN Q6HRS PRN IV Nausea; Start 10/17/16 at 07:00 ; Stop 10/18/16 at 06:59; Status DC Fentanyl Citrate (Fentanyl 2ml Vial) 25 mcg PRN Q5MIN PRN IV MILD PAIN; Start 10/17/16 at 07:00; Stop 10/18/16 at 06:59; Status DC Fentanyl Citrate (Fentanyl 2ml Vial) 50 mcg PRN Q5MIN PRN IV MODERATE PAIN; Start 10/17/16 at 07:00; Stop 10/18/16 at 06:59; Status DC Morphine Sulfate 1 mg 1 mg PRN Q10MIN PRN IV SEVERE PAIN; Start 10/17/16 at 07: 00; Stop 10/18/16 at 06:59; Status DC Lactated Ringer's (Iv Lactated Ringers) 1,000 ml @ 0 mls/hr Q0M IV ; Start at 07:00; Stop 10/17/16 at 18:59; Status DC Lidocaine HCl 2 ml 1X PRN PRN ID IV START; Start 10/17/16 at 07:00; Stop at 06:59; Status DC Hydromorphone HCl (Dilaudid) 0.5 mg PRN Q10MIN PRN IV SEVERE PAIN, Second choice; Start 10/17/16 at 07:00; Stop 10/18/16 at 06:59; Status DC Prochlorperazine Edisylate (Compazine) 5 mg PACU PRN PRN IV NAUSEA; Start 10/17 at 07:00; Stop 10/18/16 at 06:59; Status DC Sodium Cl/Sod Bicarb/Potass Cl/ PEG 4000 ml 4,000 ml 1X STAT PO ; Start at 08:40; Stop 10/17/16 at 09:25; Status DC Lactated Ringer's 1,000 ml @ 100 mls/hr Q10H IV Last administered on t 15:47; Start 10/17/16 at 15:45; Stop 10/18/16 at 00:52; Status DC Propofol (Diprivan) 40 ml @ As Directed STK-MED ONCE IV ; Start 10/17/16 at 17: 24; Stop 10/17/16 at 17:25; Status DC Lidocaine HCl (Lidocaine Pf 2% Vial) 5 ml STK-MED ONCE .ROUTE ; Start 10/17/16 at 17:25; Stop 10/17/16 at 17:26; Status DC Epinephrine HCl 3 mg STK-MED ONCE SQ Last administered on 10/17/16t 17:43; Start 10/17/16 at 17:43; Stop 10/17/16 at 18:06; Status DC Epinephrine HCl 1 mg STK-MED ONCE .ROUTE ; Start 10/18/16 at 08:36; Stop at 08:37; Status DC Levofloxacin (Levaquin) 500 mg 1X ONCE PO Last administered on 10/19/16 09:28 ; Start 10/19/16 at 09:30; Stop 10/19/16 at 09:31; Status DC Levofloxacin (Levaquin) 250 mg DAILY06 PO Last administered on 10/20/16 06:12 ; Start 10/20/16 at 06:00 Polyethylene Glycol (miraLAX PACKET) 17 gm DAILY PO Last administered on 09:11; Start 10/19/16 at 12:30 Active Scripts Active Amox Tr-K Clv 500-125 Mg Tab (Amoxicillin/Potassium Clav) 1 Each Tablet 1 Tab PO BID 3 Days Amlodipine Besylate 5 Mg Tablet 5 Mg PO DAILY 30 Days Miralax (Polyethylene Glycol 3350) 17 Gm Powd.pack 17 Gm PO DAILY 30 Days Reported Glipizide 10 Mg Tablet 1 Tab PO DAILYWBKFT Glipizide 5 Mg Tablet 1 Tab PO DAILYWSUP Aspirin 81 Mg Tab.chew 1 Tab PO DAILY Vitamin D (Cholecalciferol (Vitamin D3)) 5,000 Unit Tablet 5,000 Unit PO WEEKLY Ranitidine Hcl 150 Mg Capsule 150 Mg PO BID Alendronate Sodium 70 Mg Tablet 70 Mg PO WEEKLY Lisinopril 40 Mg Tablet 1 Tab PO DAILY Citalopram Hbr (Citalopram Hydrobromide) 40 Mg Tablet 1 Tab PO HS Omeprazole 40 Mg Capsule. 1 Cap PO HS Vitals/I & O Vital Sign - Last 24 Hours 10/19/16 10/19/16 10/19/16 10/19/16 11:00 15:00 19:00 20:00 Temp 98.4 98.3 97.0 98.4 98.3 97.0 Pulse 65 69 70 Resp 18 18 16 B/P 152/62 102/70 135/64 Pulse Ox 94 94 96 O2 Delivery Room Air Room Air Room Air Room Air 10/19/16 10/20/16 10/20/16 10/20/16 23:00 03:00 07:50 09:11 Temp 100.0 99.3 98.1 100.0 99.3 98.1 Pulse 70 75 63 63 Resp 17 B/P 133/55 152/57 157/64 157/64 Pulse Ox 94 95 91 O2 Delivery Room Air Room Air Room Air 10/20/16 09:11 Pulse 63 B/P 157/64 Intake and Output 10/19/16 10/19/16 10/20/16 15:00 23:00 07:00 Intake Total 600 ml 100 ml Balance 600 ml 100 ml ELEN FERMIN MD Oct 20, 2016 09:42
[2016-10-20] MEDS ORDERED: LEVO250T25 PO (09:50)
[2016-10-20 11:28] VITALS: BP 151/57
--- NOTE | 2016-10-20 13:31 | PDOC ---
Subjective: Subjective: Pt offers no complaints. Objective: Objective: Per RN no bleeding. Vital Signs: Vital Signs Date Time Temp Pulse Resp B/P Pulse Ox O2 Delivery O2 Flow Rate FiO2 10/20/16 11:28 98.7 68 17 151/57 97 Room Air 98.7 Labs: Laboratory Tests Test 10/19/16 17:10 10/19/16 20:35 10/20/16 07:56 10/20/16 11:51 Glucose (Fingerstick) 214mg/dL 198mg/dL 179mg/dL 189mg/dL PE: GEN: NAD ABD: S/ND/NT NEURO/PSYCH: awake, nods A/P: Rectal stercoral ulcer s/p epi inj and endoclips 10/17 -hematochezia resolved, Hgb stable -- Plans for DC today. Continue Miralax to prevent recurrence. FLORENCE LINDQUIST Oct 20, 2016 13:31
[2016-10-20 15:36] VITALS: BP 164/69
--- NOTE | 2016-10-20 21:10 | DS ---
DATE OF DISCHARGE: 10/20/2016 CHIEF COMPLAINT: Rectal bleeding. HISTORY OF PRESENT ILLNESS: The patient is a 76-year-old female who was just discharged from [facility] on 10/11/2016 after hospitalization for treatment of fecal impaction. She had returned home with her daughter and was apparently doing fine until the morning of this admission, when the family reported she had a large stool with a significant amount of bright red blood. They brought her to the Emergency Room. Initial hemoglobin was 9.7 and she was admitted for further treatment. HOSPITAL COURSE: The patient was admitted and seen in consultation by Dr. Gaston. She continued to have intermittent rectal bleeding. Her hemoglobin droped to 6.9 and she received 2 units of packed red blood cells in transfusion. After appropriate bowel prep, the patient underwent colonoscopy on 10/17/2016. This showed a rectal stercoral ulcer with bleeding. Dr. Gaston treated this with epinephrine injections and endoclips. The patient did well after this. Her hemoglobin has stabilized at 9.0 and she has had no further bleeding. The patient has been started on MiraLax daily to prevent constipation. The patient had evidence of urinary tract infection with 1-4 wbcs in a urine specimen. She was started on Rocephin. Urine cultures positive for pseudomonas, which is jeffries sensitive. She was changed to oral Levaquin and will go home with a prescription of this to complete 7 days of treatment. The patient's other chronic medical problems remained stable with her home medications and these have all been continued. The patient has significant debility, but she is at her baseline and her daughter takes care of her at home. She will be discharged to home today. FINAL DIAGNOSES: 1. Rectal bleeding from stercoral ulcer. 2. Acute blood loss anemia. 3. Urinary tract infection. 4. Chronic constipation. 5. Diabetes mellitus type 2. 6. Hypertension. 7. Debility. DISCHARGE MEDICATIONS: Levaquin 250 mg 1 p.o. daily x 2 days, alendronate 70 mg weekly, amlodipine 5 mg daily, aspirin 81 mg daily, citalopram 40 mg daily, glipizide 10 mg in the a.m. and 5 mg in p.m., lisinopril 40 mg daily, omeprazole 40 mg daily, MiraLax 17 grams daily, ranitidine 150 mg b.i.d. FOLLOWUP: With Dr. Killam in 2 weeks. ELEN FERMIN MD DR: OLENA/robin JOB#: [id number] / [id number] MANUEL
== END 2016-10-20 18:45 | disposition home or self-care (01) | DRG 394 ==
LOC: ER 13:03 → ED HOLD 14:50 → 6 SOUTH 20:36
PROVIDERS: ADMIT Family Medicine; ATTEND Family Medicine
PROC: 30233N1 Transfusion of Nonautologous Red Blood Cells into Peripheral Vein, Percutaneous Approach (ICD-10-PCS; 2016-10-16)
PROC: 3E0H8GC Introduction of Other Therapeutic Substance into Lower GI, Via Natural or Artificial Opening Endoscopic (ICD-10-PCS; principal; 2016-10-17 15:30)
PROC: 0DJD8ZZ Inspection of Lower Intestinal Tract, Via Natural or Artificial Opening Endoscopic (ICD-10-PCS; 2016-10-17 15:30)
DX: K62.6 Ulcer of anus and rectum (principal); D62 Acute posthemorrhagic anemia; K92.1 Melena; N39.0 Urinary tract infection, site not specified; G81.91 Hemiplegia, unspecified affecting right dominant side; Z68.1 Body mass index [BMI] 19.9 or less, adult; K64.8 Other hemorrhoids; K57.30 Diverticulosis of large intestine without perforation or abscess without bleeding; I69.320 Aphasia following cerebral infarction; K21.9 Gastro-esophageal reflux disease without esophagitis; I10 Essential (primary) hypertension; F32.9 Major depressive disorder, single episode, unspecified; F41.9 Anxiety disorder, unspecified; E78.00 Pure hypercholesterolemia, unspecified; I71.4 Abdominal aortic aneurysm, without rupture; K64.9 Unspecified hemorrhoids; Z96.641 Presence of right artificial hip joint; E11.9 Type 2 diabetes mellitus without complications; E78.5 Hyperlipidemia, unspecified; J44.9 Chronic obstructive pulmonary disease, unspecified; K56.41 Fecal impaction; Z79.899 Other long term (current) drug therapy; Z87.891 Personal history of nicotine dependence; Z90.710 Acquired absence of both cervix and uterus; Z90.49 Acquired absence of other specified parts of digestive tract; Z88.8 Allergy status to other drugs, medicaments and biological substances; Z91.040 Latex allergy status
CPT/HCPCS: 36415; 80048; 80053; 81001; 82274; 82947; 85027; 86850; 86900; 86901; 86920; 87086; 87186; 96372; J0171; J0696; J1815; J2704; J7120; P9016; 97535; 99285-25